=== PATIENT | female | born 1980 | race Caucasian/White ===

== ENCOUNTER 2019-12-17 00:22 | Observation (INO) | payer OTHER, SELFPAY ==
[2019-12-17] VITALS (17 sets, daily range): BP systolic 120–157; BP diastolic 54–106; PULSE 85–127; RESP 13–26; TEMP 36.6–37.5; O2SAT 97–100; BMI 27.9
--- NOTE | ~2019-12-17 | CT_ITS ---
EXAMINATION: CT brain wo con EXAM DATE: 12/17/2019 02:30 INDICATION: Seizure, head trauma, laceration. Fell from bed. TECHNIQUE: Spiral CT of the head was performed without contrast. Axial, coronal and sagittal images were reviewed. The dose-length product (DLP) for this examination was 605.33 mGy-cm. The exposure w as tailored according to patient size, and iterative reconstruction (ASIR) was used as additional dos e reduction technique. There is no prior study for comparison. FINDINGS: There is no acute intraparenchymal hemorrhage. No evidence of intraparenchymal brain mass lesion. No evidence of acute infarction. There is no mass effect or midline shift. The ventricles are normal in size. There are no extra-axial collections. There are no acute calvarial fractures. T he orbits are unremarkable. Small frontal scalp contusion and laceration. The visualized sinuses and mastoid air cells are well aerated. IMPRESSION: 1. No acute intracranial findings. 2. Small frontal scalp contusion and laceration. Reviewed, dictated and finalized at location A.
--- NOTE | ~2019-12-17 | CT_ITS ---
EXAMINATION: CT facial & cervical spine wo EXAM DATE: 12/17/2019 02:30 INDICATION: Fall, frontal head injury. TECHNIQUE: Spiral CT of the facial bones was acquired in the axial plane. Coronal reformatted images were also reviewed. Spiral CT of the cervical spine was performed without contrast. Axial images we re reviewed. Coronal and sagittal reformatted images were also reviewed. The dose-length product (DL P) for this examination was 486.62 mGy-cm. The exposure was tailored according to patient size, and iterative reconstruction (ASIR) was used as additional dose reduction technique. There is no prior s tudy for comparison. FINDINGS: FACIAL CT: Acute right frontal bone fracture with minimal buckling. The septum appears intact. The orbits, globes and extraocular muscles are unremarkable. Small amount of blood within the right eth moid sinuses and nasal cavity. Mild maxillary mucoperiosteal thickening. CERVICAL CT: There is no evidence of acute cervical fracture. The odontoid process is intact. Pre-d ens space is normal. Prevertebral soft tissue is normal. There are no soft tissue abnormalities latoya ntified. There is no disc space widening or traumatic vertebral body subluxation suspected. Incompl ete fusion posterior arch of C1, normal congenital variant. Mild cervical arthropathy. Disc heights a re maintained. A detailed level by level evaluation of spondylosis can be added as addendum if reques ashley. IMPRESSION: 1. Acute right nasal bone fracture. Small amount of sinus opacity. 2. Mild cervical arthropathy without fracture. Reviewed, dictated and finalized at location A.
--- NOTE | 2019-12-17 00:37 | ECG_ITS ---
Measurements Intervals [place] Rate: 117 P: 55 [place]: 166 QRS: 46 QRSD: 98 T: 61 QT: 417 QTc: 583 Interpretive Statements SINUS TACHYCARDIA DELAYED PRECORDIAL R/S TRANSITION NONSPECIFIC T-WAVE ABNORMALITY- DIFFUSE LEADS BASELINE ARTIFACT- I, III, AVL, V1 ABNORMAL ECG Electronically Signed On 12-17-2019 12:20:18 CDT by Cortez Frank D.O.
[2019-12-17] MEDS: SODIUM CHLORIDE 0.9% IV 1,000 ML 999 ML IV CONT ×2 (00:46→03:15)
[2019-12-17 00:50] LABS: Basophils Percent Auto 0.6 % (0.2-1.2); Eosinophils Absolute Auto 0.1 K/mm3 (0-0.3); Hematocrit 39.9 % (37.0-47.0); Hemoglobin 13.8 g/dL (12.0-15.0); Immature Granulocyte Absolute 0.03 K/mm3 (0.00-0.031); Immature Granulocyte Percent A 0.4 % (0-0.5); Lymphocytes Absolute Auto 1.42 K/mm3 (0.9-3.2); Lymphocytes Percent Auto 19.6 % (18.3-44.2); Mean Corpuscular HGB Conc 34.6 g/dl (32-36); Mean Corpuscular Hemoglobin 33.9 pg (26-34); Monocytes Absolute Auto 0.7 K/mm3 (0.1-0.6); Monocytes Percent Auto 9.5 % (2.6-8.5); Neutrophils Percent Auto 68.9 % (45.5-73.1); Platelet Count Result 77 k/mm3 (150-375); Red Blood Count 4.07 M/mm3 (4.2-5.4); Red Cell Distribution Width 12.5 % (11.5-14.5); White Blood Count 7.3 K/mm3 (4.5-10.0)
[2019-12-17 00:58] LABS: INR 0.9; Prothrombin Time 11.8 Seconds (11.1-14.7)
[2019-12-17 01:00] LABS: Ethanol 92 mg/dL (<10)
[2019-12-17 01:01] LABS: Alanine Aminotransferase 153 U/L (4-35); Albumin Level 5.2 g/dL (3.5-5.1); Alkaline Phosphatase 74 U/L (38-126); Anion Gap 15 mmol/L (8-16); Aspartate Amino Transferase 113 U/L (14-36); Bilirubin,Total 0.9 mg/dL (0.2-1.3); Blood Urea Nitrogen 10 mg/dL (7-17); Calcium 9.2 mg/dL (8.4-10.2); Carbon Dioxide 21 mmol/L (22-30); Chloride 99 mmol/L (98-107); Estimated Glomerular Filt Rate > 60; Glucose 102 mg/dL (65-105); Sodium 135 mmol/L (137-145)
--- NOTE | 2019-12-17 01:18 | ED.ALCOHOL ---
HPI - Alcohol General Chief Complaint: Alcohol Stated Complaint: quit drinking, chest pain, shaking, vomiting Time Seen by Provider: 12/17/19 00:35 History of Present Illness HPI narrative: Patient is a 39-year-old female who presents the ER with alcohol withdrawal. Patient reports she drinks 1/5 of EJ bogdan a day. Sometimes she will switch it up and drink some Gonzalo Beam. Patient is side today she want to stop drinking. Her last drink was this evening when she had 6 [place] light beers more attempt to curb her withdrawal. Patient reports she just feels terrible and is very shaky. She is reporting some on diffuse abdominal pain related to this. Positive nausea/vomiting. No diarrhea. No urinary frequency/urgency. Related Data Home Medications Medication Instructions Recorded Confirmed escitalopram oxalate [Lexapro] 10 mg PO DAILY 12/17/19 12/17/19 hydroxyzine HCl 50 mg PO HS 12/17/19 12/17/19 prazosin [Minipress] 1 mg PO HS 12/17/19 12/17/19 Allergies Allergy/AdvReac Type Severity Reaction Status Date / Time Penicillins Allergy Unknown RASH Verified 05/18/17 14:11 Sulfa (Sulfonamide Allergy Unknown Verified 05/18/17 14:11 Antibiotics) Review of Systems Review of Systems: All systems reviewed & are unremarkable except as noted in HPI and below Constitutional: Constitutional: Denies chills, Denies fever(s) and Denies weakness ENT: Denies nasal congestion and Denies sore throat Gastrointestinal: Gastrointestinal: Reports abdominal pain, Denies diarrhea, Reports nausea and Reports vomiting Genitourinary: Genitourinary: Denies nocturia and Denies dysuria [facility] Past Medical History Medical History Alcoholism H/O: depression Surgical History Surgical History History of orthopedic surgery LLE Social History Social History Smoking packs per day: 2 Smoking cigarettes per day: 40.0 Smoking status: Current every day smoker Tobacco type: cigarettes Second hand tobacco smoke exposure: Yes Alcohol intake: current Drinks per week: 7 Substance use: current Substance use type: marijuana Gender identity (if verbalized by the patient): Female Spiritual care concerns: Yes Exam Narrative: Exam Narrative: GENERAL: Uncomfortable-appearing, well-nourished, and in mild distress. HEAD: Normocephalic, atraumatic. ENT: Mucous membranes moist. CHEST: Clear to auscultation. No respiratory distress. HEART: Tachycardic and regular. Normal peripheral pulses. ABDOMEN: Soft, nontender, nondistended. EXTREMITIES: Normal range of motion. No edema. SKIN: Warm, dry, no rash. NEURO: Tremulous. Alert and oriented x3. Course Reevaluation(s) Reevaluation #1: Patiently with initially good response with Valium and then for tachycardia and tremulousness. Patient is ambulated to the bathroom and walked back into her room. She then dropped and had a seizure. She struck her head most likely on the ground and has a new midline laceration. She also has bleeding from her nose and has a small amount of swelling over the bridge of the nose. Patient was rolled on her side when she spit up blood. She then regained consciousness and she was also back in the bed where seizure pads were placed. Patient was then given Ativan [address] imaging of her head face and C-spine. Accu-Chek 109. Date: 12/17/19 Time: 02:04 Reevaluation #2: Accepted to ICU by Dr. Lowe, accepted by hospitalist as well. Date: 12/17/19 Time: 03:21 Vital Signs Vital signs: Vital Signs Temperature 97.9 F 12/17/19 00:23 Pulse Rate 127 H 12/17/19 00:23 Respiratory Rate 20 12/17/19 00:23 Blood Pressure 155/101 H 12/17/19 00:23 Pulse Oximetry 99 12/17/19 00:23 Temperature 97.7 F 12/19/19 14:00 Pulse Rate 85 12/19/19 14:00 Respiratory Rate 14 12/19/19
--- NOTE | 2019-12-17 01:23 | PC.NURSE ---
pt ambulatory to restroom at this time.
--- NOTE | 2019-12-17 01:35 | PC.NURSE ---
pt missed urine cup with urine while in restroom. edp notified.
--- NOTE | 2019-12-17 02:00 | PC.NURSE ---
RN walked into room at this time, pt found on floor having a seizure, leonor marion called to room at this time. 2mg of ativan given at this time.
--- NOTE | 2019-12-17 02:05 | PC.NURSE ---
pt placed back in bed, seizure pads applied to side rails. CT ordered per edp. PT a&ox1, slow to respond, answering to name calling.
[2019-12-17 02:08] LABS: Glucose Point of Care 109 (65-105)
[2019-12-17 03:16] LABS: Add Urine Microscopic? YES; Appearance Urine Cloudy (Clear); Bilirubin Urine Negative (Negative); Blood Urine 3+ (Negative); Color Urine Amber (Yellow); Glucose Urine UA Negative (Negative); Ketones Urine Trace mg/dL (Negative); Leukocyte Esterase Ur 1+ LEU/UL (Negative); Nitrate Urine Positive (Negative); Protein Urine 2+ mg/dL (Negative); RBC Urine 0-2 /hpf (0-2); Specific Grav Ur 1.019 (1.001-1.035); Squamous Epithelial Cell Urine Rare /hpf (Few); Urobilinogen Urine Negative mg/dL (<2.0)
--- NOTE | 2019-12-17 04:29 | PM.IMHP ---
H&P: HPI History of Present Illness Date/Time: 12/17/19 04:29 Chief complaint: alcohol withdrawal seizure Narrative: This is a 39 year old female with known alcoholism who is known to drink 1/5 of hard liquor daily and presented to the hospital today as she desired to stop drinking alcohol. The patient last drank 6 beers around 6 pm yesterday evening to help with her withdrawal symptoms. She initially complained of shakiness, anxiety, sweatiness, nausea and vomiting. She was initially treated with Valium IV in the ER tonight and afterwards she suffered a seizure while ambulating to the bathroom. She suffered head trauma when she struck her forehead on the ground. The patient doesn't remember passing out tonight in the ER. She also reports that she did bite her tongue as well. CT brain was performed in the ER which did not demonstrate any intracranial process. She was given ativan 2 mg. She has no other complaints tonight. She denies any fevers, cough, chest pain, shortness of breath, chills, abdominal pain, dysuria, hematuria, diarrhea, rectal bleeding, or focal neurological symptoms. On my encounter with the patient she complains of shakiness and headache. Jockey Valet, Dr. Lowe has been consulted by ER provider. Review of Systems Review of Systems: All systems reviewed & are unremarkable except as noted in HPI and below PMFSH Past Medical History Medical History Alcoholism H/O: depression Surgical History Surgical History History of orthopedic surgery LLE Social History Social History Smoking packs per day: 2 Smoking cigarettes per day: 40.0 Smoking status: Current every day smoker Tobacco type: cigarettes Second hand tobacco smoke exposure: Yes Alcohol intake: current Drinks per week: 7 Substance use: current Substance use type: marijuana Gender identity (if verbalized by the patient): Female Spiritual care concerns: Yes Meds Home Medications and Allergies Home Medications Medication Instructions Recorded Confirmed Type escitalopram oxalate [Lexapro] 10 mg PO DAILY 12/17/19 12/17/19 History hydroxyzine HCl 50 mg PO HS 12/17/19 12/17/19 History prazosin [Minipress] 1 mg PO HS 12/17/19 12/17/19 History Allergies Allergy/AdvReac Type Severity Reaction Status Date / Time Penicillins Allergy Unknown RASH Verified 05/18/17 14:11 Sulfa (Sulfonamide Allergy Unknown Verified 05/18/17 14:11 Antibiotics) Vital Signs Vital Signs - 24 hr 12/17/19 00:23 12/17/19 01:09 12/17/19 02:12 Temperature 36.6 C Pulse Rate 127 H 98 115 H Respiratory Rate 20 19 25 H Blood Pressure 155/101 H 148/99 H 157/97 H Pulse Oximetry 99 97 98 12/17/19 02:47 12/17/19 03:18 12/17/19 03:36 Temperature Pulse Rate 104 H 99 101 H Respiratory Rate 25 H 26 H 13 Blood Pressure 136/94 H 140/93 H 138/91 H Pulse Oximetry 97 98 99 12/17/19 04:04 Temperature 36.8 C Pulse Rate 101 H Respiratory Rate 21 H Blood Pressure 137/85 Pulse Oximetry 97 Exam Const: General: alert, awake and acute distress Nutritional Appearance: well nourished Orientation/consciousness: patient oriented x3 HENMT: Head: laceration (frontal++ ) General nose exam: Other nasal findings present (nosebleed+) Face and sinus: normal facial exam Mouth: Yes tongue abnormal (left sided tongue laceration++ ) Eyes: Pupils: Equal, round and reactive pupils present EOM: EOMs intact bilaterally Neck: Neck: supple and no JVD Thyroid: thyroid normal Lymphatic: lymphadenopathy not noted Resp: Effort & Inspection: normal respiratory effort Auscultation: clear to auscultation bilaterally Cardio: Rate: tachycardic Rhythm: regular rhythm Heart sounds: no murmurs GI: Inspection: normal to inspection Auscultation: normal bowel sounds Skin: General skin
[2019-12-17 05:15] LABS: Basophils Percent Auto 0.5 % (0.2-1.2); Eosinophils Percent Auto 0.2 % (0-4.4); Hematocrit 35.5 % (37.0-47.0); Hemoglobin 12.4 g/dL (12.0-15.0); Immature Granulocyte Absolute 0.03 K/mm3 (0.00-0.031); Immature Granulocyte Percent A 0.5 % (0-0.5); Immature Platelet Fraction Pct 5.7 % (0.9-11.2); Lymphocytes Absolute Auto 0.65 K/mm3 (0.9-3.2); Lymphocytes Percent Auto 11.1 % (18.3-44.2); Mean Corpuscular HGB Conc 34.9 g/dl (32-36); Mean Corpuscular Hemoglobin 34.4 pg (26-34); Mean Corpuscular Volume 98.6 fl (80-100); Mean Platelet Volume 10.4 fl (7.4-10.4); Monocytes Absolute Auto 0.4 K/mm3 (0.1-0.6); Neutrophils Absolute Auto 4.7 K/mm3 (1.3-6.7); Neutrophils Percent Auto 80.7 % (45.5-73.1); Platelet Count Result 78 k/mm3 (150-375); Red Cell Distribution Width 12.5 % (11.5-14.5); White Blood Count 5.9 K/mm3 (4.5-10.0)
[2019-12-17 05:24] LABS: Anion Gap 8 mmol/L (8-16); Blood Urea Nitrogen 8 mg/dL (7-17); Calcium 8.1 mg/dL (8.4-10.2); Carbon Dioxide 24 mmol/L (22-30); Chloride 101 mmol/L (98-107); Estimated CRCL calculation 139 ml/min; Estimated Glomerular Filt Rate > 60; Glucose 114 mg/dL (65-105); Magnesium 1.9 mg/dL (1.6-2.3); Potassium 3.9 mmol/L (3.4-5.0); Sodium 133 mmol/L (137-145)
--- NOTE | 2019-12-17 06:12 | ADMGEN ---
This patient, Corrie Mckeon, was admitted to Intensive Care Unit-12 at 0428. Patient/family oriented to hospital policies and general routines including ID bracelet, bed and alarms, visiting hours, pain management, procedures, bathroom and other care routines, personal items, smoking policy, room service/diet, and visiting hours. Valuables list has been completed. Information on how to activate the Rapid Response Team has been discussed. Patient/Family are encouraged to report perceived risks to care and to ask questions if they do not understand what they are told or what they should do.
[2019-12-17] MEDS: THIAMINE HCL 200 MG/2 ML VIAL 100 MG IV PUSH (08:06)
[2019-12-17] MEDS: chlordiazePOXIDE 25 MG CAPSULE 50 MG PO ×3 (08:06→20:29)
[2019-12-17] MEDS: NICOTINE (*PBKC) 21 MG PATCH 1 PATCH TRANSDERM (08:45)
[2019-12-17] MEDS: FOLIC ACID 1 MG TABLET PO (08:45)
--- NOTE | 2019-12-17 09:43 | WPDCNINT ---
Assessment and Plan Assessment and plan (1) Alcohol withdrawal seizure: Qualifiers: Complication of substance-induced condition: with unspecified complication Qualified Code(s): F10.239 - Alcohol dependence with withdrawal, unspecified; R56.9 - Unspecified convulsions Code(s): F10.239 - Alcohol dependence with withdrawal, unspecified; R56.9 - Unspecified convulsions Status: Acute Assessment and Plan: alcohol withdrawal seizures, - no more seizures since in the ICU - Ativen PRN - start Librium - continue IV fluids - continue CIWA protocol - continue thiamine and folic acid (2) Laceration of head: Qualifiers: Encounter type: initial encounter Location of open wound of head: scalp Foreign body presence: without foreign body Qualified Code(s): S01.01XA - Laceration without foreign body of scalp, initial encounter Code(s): S01.91XA - Laceration without foreign body of unspecified part of head, initial encounter Status: Acute Assessment and Plan: laceration of head after a fall, CT scan of the head, face and cervical spine showed fracture of the nasal bone. - continue pain control (3) Thrombocytopenia: Code(s): D69.6 - Thrombocytopenia, unspecified Status: Chronic Assessment and Plan: chronic thrombocytopenia likely secondary to chronic alcoholism. Continue to monitor (4) Transaminitis: Code(s): R74.0 - Nonspecific elevation of levels of transaminase and lactic acid dehydrogenase [LDH] Status: Acute Assessment and Plan: elevated LFTs likely related likely to alcoholic liver disease - will continue to monitor (5) Tobacco dependence: Code(s): F17.200 - Nicotine dependence, unspecified, uncomplicated Status: Acute Assessment and Plan: counseled patient on tobacco cessation, she stated she is going to quit drinking 1st and then will be working on her cigarettes - nicotine patch in place Additional Plan discussed with patient updated with her condition and plan of care, answered all questions. Code status: Full code critical care time spent: 42 minutes Due to a high probability of clinically significant, life threatening deterioration, the patient required my highest level of preparedness to intervene emergently and I personally spent this critical care time directly and personally managing the patient. This critical care time included obtaining a history; examining the patient; pulse oximetry; ordering and review of studies; arranging urgent treatment with development of a management plan; evaluation of patient's response to treatment; frequent reassessment; and discussions with other providers. It was exclusive of separately billable procedures and treating other patients and teaching time. Please see Assessment and Plan section and the rest of the note for further information on patient assessment and treatment Decorating Instructor Consult Note Consult date: 12/17/19 Time Seen: 07:08 Reason for consult: alcohol intoxication, alcohol withdrawal seizure HPI: Corrie Mckeon is a 39 year old female with significant past medical history of alcoholism, no to drink 1/5 of hard liquor daily presented to the hospital early this morning after she has quit drinking. She had last drink on 12/15 in the evening to help her with her withdrawal symptoms feel she complained of shakiness, anxiety, diaphoresis, nausea vomiting. In the ED she was given Valium IV after which she suffered a seizure while ambulating to the bathroom. She did have a fall with trauma to the head. CT scan of the head was negative for acute intracranial abnormalities. CT scan of facial bones and cervical spine showed acute right nasal bone fracture, small amount of sinus opacity, mild cervical arthropathy without fracture. Pt was transferred to the ICU to watch for withdrawal. Pt seen and examined, is awake, alert, oriented x3. non focal. Pt states she
--- NOTE | 2019-12-17 14:58 | PM.IMPN ---
Progress Note: A&P Assessment and Plan (1) Alcohol withdrawal seizure: Qualifiers: Complication of substance-induced condition: with unspecified complication Qualified Code(s): F10.239 - Alcohol dependence with withdrawal, unspecified; R56.9 - Unspecified convulsions Code(s): F10.239 - Alcohol dependence with withdrawal, unspecified; R56.9 - Unspecified convulsions Status: Acute Assessment and Plan: Seizure precautions. Ativan IV for any acute seizures. transfer to the floor. (2) Alcohol withdrawal: Qualifiers: Complication of substance-induced condition: with unspecified complication Qualified Code(s): F10.239 - Alcohol dependence with withdrawal, unspecified Code(s): F10.239 - Alcohol dependence with withdrawal, unspecified Status: Acute Assessment and Plan: CIWA-AR protocol. Ativan withdrawal prophylaxis. Librium PO when possible. Thiamine IV daily. Pt drinks whisky (3) Laceration of head: Qualifiers: Encounter type: initial encounter Location of open wound of head: scalp Foreign body presence: without foreign body Qualified Code(s): S01.01XA - Laceration without foreign body of scalp, initial encounter Code(s): S01.91XA - Laceration without foreign body of unspecified part of head, initial encounter Status: Acute Assessment and Plan: Acute head trauma w/ laceration. Pt has sutures in situ. CT brain was unremarkable for intracranial pathology. (4) Thrombocytopenia: Code(s): D69.6 - Thrombocytopenia, unspecified Status: Chronic Assessment and Plan: Chronic thrombocytopenia likely secondary to chronic alcoholism. . (5) Transaminitis: Code(s): R74.0 - Nonspecific elevation of levels of transaminase and lactic acid dehydrogenase [LDH] Status: Acute Assessment and Plan: Likely secondary to chronic alcoholism. . (6) Tobacco dependence: Code(s): F17.200 - Nicotine dependence, unspecified, uncomplicated Status: Acute Assessment and Plan: adviced to quit drinking alcholol Subjective Date/time seen: 12/17/19 14:58 Interval history: 39 year old female with known alcoholism who is known to drink 1/5 of hard liquor daily and presented to the hospital today as she desired to stop drinking alcohol. Pt had a large seizure were she hit her head and bit her tongue. Pt is stable for transfer to the medical floor. Review of Systems Review of Systems: Narrative: Seizure, head injury, bruises all over faceand legs Exam Const: General: alert, awake and acute distress Nutritional Appearance: well nourished Orientation/consciousness: patient oriented x3 HENMT: Head: laceration (frontal++ ) General nose exam: Other nasal findings present (nosebleed+) Face and sinus: normal facial exam Mouth: Yes tongue abnormal (left sided tongue laceration++ ) Resp: Effort & Inspection: normal respiratory effort Auscultation: clear to auscultation bilaterally Cardio: Rate: tachycardic Rhythm: regular rhythm Heart sounds: no murmurs GI: Inspection: normal to inspection Auscultation: normal bowel sounds Skin: General skin exam: normal color and no rashes or lesions noted Neuro: General: patient oriented x3 and other (Tremors++ ) Cranial nerves: Yes CN's II-XII intact bilaterally and Yes Equal, round and reactive pupils present Speech: normal speech Motor exam (neuro): 5/5 motor strength present throughout Sensory Exam: normal sensation Extrem: General: normal to inspection and no edema Psych: Mental Status: mental status grossly normal Affect: normal affect Objective Data Vital Signs Vital Signs: Vital Signs - 24 hr 12/17/19 00:23 12/17/19 01:09 12/17/19 02:12 Temperature 36.6 C Pulse Rate 127 H 98 115 H Pulse Rate [Monitor] Respiratory Rate 20 19 25 H Blood Pressure 155/101 H 148/99 H 157/97 H Pulse Oximetry 99 97 98 12/17/19 02:47 12/17/19 03:18 0
--- NOTE | 2019-12-17 18:48 | PC.NURSE ---
This patient, Corrie Mckeon, was transferred to [facility] via wheelchair on 12/17/19 at 1840. Personal belongings sent with patient. Belongings list checked and signed with receiving . Report given to DOV Rodriguez. Appropriate documentation sent with patient.
--- NOTE | 2019-12-17 18:51 | PC.NURSE ---
Received patient from ICU via wheelchair with ICU staff. Patient settled into room. Awake and alert. No distress noted. Seizure pads on bedrails. Patient states she is having mouth pain since eating. Requesting pain med.
[2019-12-17] MEDS: hydrOXYzine HCL 25 MG TABLET 50 MG PO (20:29)
[2019-12-17] MEDS: PRAZOSIN HCL 1 MG CAPSULE PO (20:29)
[2019-12-18] VITALS: BP 112/71; PULSE 84; RESP 18; TEMP 36.6; O2SAT 98
[2019-12-18] MEDS: chlordiazePOXIDE 25 MG CAPSULE 50 MG PO ×4 (05:00→20:27)
[2019-12-18 06:01] LABS: Hemoglobin 12.9 g/dL (12.0-15.0); Immature Platelet Fraction Pct 9.3 % (0.9-11.2); Mean Corpuscular HGB Conc 33.9 g/dl (32-36); Mean Corpuscular Hemoglobin 33.9 pg (26-34); Mean Platelet Volume 11.2 fl (7.4-10.4); Platelet Count Result 77 k/mm3 (150-375); Red Cell Distribution Width 12.4 % (11.5-14.5); White Blood Count 6.8 K/mm3 (4.5-10.0)
[2019-12-18 06:06] LABS: Anion Gap 5 mmol/L (8-16); Blood Urea Nitrogen 9 mg/dL (7-17); Calcium 9.1 mg/dL (8.4-10.2); Carbon Dioxide 25 mmol/L (22-30); Chloride 103 mmol/L (98-107); Estimated CRCL calculation 141 ml/min; Estimated Glomerular Filt Rate > 60; Glucose 97 mg/dL (65-105); Potassium 3.9 mmol/L (3.4-5.0); Sodium 133 mmol/L (137-145)
[2019-12-18] MEDS: NICOTINE (*PBKC) 21 MG PATCH 1 PATCH TRANSDERM (08:54)
[2019-12-18] MEDS: THIAMINE HCL 200 MG/2 ML VIAL 100 MG IV PUSH (08:55)
[2019-12-18] MEDS: FOLIC ACID 1 MG TABLET PO (08:55)
[2019-12-18 14:00] VITALS: BP 115/80; PULSE 91; RESP 16; TEMP 37.2; O2SAT 100
[2019-12-18] MEDS: LORazepam 1 MG TABLET PO (14:15)
--- NOTE | 2019-12-18 15:55 | PM.IMPN ---
Progress Note: A&P Assessment and Plan (1) Alcohol withdrawal seizure: Qualifiers: Complication of substance-induced condition: with unspecified complication Qualified Code(s): F10.239 - Alcohol dependence with withdrawal, unspecified; R56.9 - Unspecified convulsions Code(s): F10.239 - Alcohol dependence with withdrawal, unspecified; R56.9 - Unspecified convulsions Status: Acute Assessment and Plan: Seizure precautions. Ativan IV for any acute seizures. transfer to the floor. 12/18/19 15:55 patient is a 39-year-old female with history of alcohol abuse patient drinks 1/5 of hard liquor every day and had been trying to stop drinking and developed shakes, to stop her shakes she had 6 beers however she continued to going in to withdrawal and presented emergency department for further evaluation, while in the emergency depart patient had an episode of seizure while ambulating, patient fell and struck head, CT scan of the head did not show any intracranial injury, patient does have laceration, patient is started on CIWA protocol with Librium and Ativan as needed, patient still complains of being anxious however her CIWA protocol score is low, is clinically stable, will continue present management and monitor with CIWA scale, patient will benefit going into alcohol treatment facility, will have a PT OT evaluate the patient, since patient had alcohol withdrawal seizure patient was not placed on any anti seizure medication. (2) Alcohol withdrawal: Qualifiers: Complication of substance-induced condition: with unspecified complication Qualified Code(s): F10.239 - Alcohol dependence with withdrawal, unspecified Code(s): F10.239 - Alcohol dependence with withdrawal, unspecified Status: Acute Assessment and Plan: CIWA-AR protocol. Ativan withdrawal prophylaxis. Librium PO when possible. Thiamine IV daily. Pt drinks whisky (3) Laceration of head: Qualifiers: Encounter type: initial encounter Location of open wound of head: scalp Foreign body presence: without foreign body Qualified Code(s): S01.01XA - Laceration without foreign body of scalp, initial encounter Code(s): S01.91XA - Laceration without foreign body of unspecified part of head, initial encounter Status: Acute Assessment and Plan: Acute head trauma w/ laceration. Pt has sutures in situ. CT brain was unremarkable for intracranial pathology. (4) Thrombocytopenia: Code(s): D69.6 - Thrombocytopenia, unspecified Status: Chronic Assessment and Plan: Chronic thrombocytopenia likely secondary to chronic alcoholism. . (5) Transaminitis: Code(s): R74.0 - Nonspecific elevation of levels of transaminase and lactic acid dehydrogenase [LDH] Status: Acute Assessment and Plan: Likely secondary to chronic alcoholism. . (6) Tobacco dependence: Code(s): F17.200 - Nicotine dependence, unspecified, uncomplicated Status: Acute Assessment and Plan: adviced to quit drinking alcholol Additional Plan I suspect the patient will likely need at least 2 nights of inpatient medical therapy for her alcohol withdrawal and withdrawal seizure. Date of service was 12/17/2019 at 5:00 hrs. Subjective Date/time seen: Seizure precautions. Ativan IV for any acute seizures. transfer to the floor. 12/18/19 15:55 patient is a 39-year-old female with history of alcohol abuse patient drinks 1/5 of hard liquor every day and had been trying to stop drinking and developed shakes, to stop her shakes she had 6 beers however she continued to going in to withdrawal and presented emergency department for further evaluation, while in the emergency depart patient had an episode of seizure while ambulating, patient fell and struck head, CT scan of the head did not show any intracranial injury, patient does have laceration, patient is started on CIWA protocol with Librium and Ativan as
[2019-12-18] MEDS: hydrOXYzine HCL 25 MG TABLET 50 MG PO (20:27)
[2019-12-18] MEDS: PRAZOSIN HCL 1 MG CAPSULE PO (20:27)
[2019-12-18] MEDS: ACETAMINOPHEN 325 MG TABLET 650 MG PO (20:31)
[2019-12-19] VITALS: BP 113/74; PULSE 79; RESP 18; TEMP 36.1; O2SAT 100
[2019-12-19] MEDS: chlordiazePOXIDE 25 MG CAPSULE 50 MG PO ×2 (03:11→07:43)
[2019-12-19 06:00] VITALS: BP 111/76; PULSE 81; RESP 18; TEMP 36.2; O2SAT 99
[2019-12-19 06:05] LABS: Hematocrit 36.8 % (37.0-47.0); Hemoglobin 12.5 g/dL (12.0-15.0); Immature Platelet Fraction Pct 9.9 % (0.9-11.2); Mean Corpuscular Hemoglobin 34.4 pg (26-34); Mean Corpuscular Volume 101.4 fl (80-100); Mean Platelet Volume 11.5 fl (7.4-10.4); Platelet Count Result 84 k/mm3 (150-375); Red Blood Count 3.63 M/mm3 (4.2-5.4); White Blood Count 5.9 K/mm3 (4.5-10.0)
[2019-12-19 06:46] LABS: Alanine Aminotransferase 186 U/L (4-35); Albumin Level 4.2 g/dL (3.5-5.1); Alkaline Phosphatase 57 U/L (38-126); Anion Gap 7 mmol/L (8-16); Aspartate Amino Transferase 152 U/L (14-36); Bilirubin,Total 0.8 mg/dL (0.2-1.3); Blood Urea Nitrogen 12 mg/dL (7-17); Calcium 9.1 mg/dL (8.4-10.2); Carbon Dioxide 25 mmol/L (22-30); Chloride 103 mmol/L (98-107); Estimated CRCL calculation 105 ml/min; Estimated Glomerular Filt Rate > 60; Glucose 95 mg/dL (65-105); Magnesium 1.9 mg/dL (1.6-2.3); Potassium 3.7 mmol/L (3.4-5.0); Sodium 135 mmol/L (137-145)
[2019-12-19] MEDS: THIAMINE HCL 200 MG/2 ML VIAL 100 MG IV PUSH (07:44)
[2019-12-19] MEDS: FOLIC ACID 1 MG TABLET PO (07:44)
[2019-12-19] MEDS: NICOTINE (*PBKC) 21 MG PATCH 1 PATCH TRANSDERM (07:44)
[2019-12-19] MEDS: POTASSIUM CHLORIDE 20 MEQ TABLET 40 MEQ PO (08:52)
[2019-12-19] MEDS: ACETAMINOPHEN 325 MG TABLET 650 MG PO (08:52)
[2019-12-19] MEDS: LORazepam 1 MG TABLET PO (08:53)
--- NOTE | 2019-12-19 13:40 | PM.DS ---
DS: Admitting Diagnosis Admitting Diagnosis Admitting Diagnosis: alcohol withdrawal seizure DS: Discharge Diagnosis Discharge Diagnosis (1) Alcohol withdrawal seizure: Qualifiers: Complication of substance-induced condition: with unspecified complication Qualified Code(s): F10.239 - Alcohol dependence with withdrawal, unspecified; R56.9 - Unspecified convulsions Code(s): F10.239 - Alcohol dependence with withdrawal, unspecified; R56.9 - Unspecified convulsions Status: Acute Assessment and Plan: Seizure precautions. Ativan IV for any acute seizures. transfer to the floor. 12/18/19 15:55 patient is a 39-year-old female with history of alcohol abuse patient drinks 1/5 of hard liquor every day and had been trying to stop drinking and developed shakes, to stop her shakes she had 6 beers however she continued to going in to withdrawal and presented emergency department for further evaluation, while in the emergency depart patient had an episode of seizure while ambulating, patient fell and struck head, CT scan of the head did not show any intracranial injury, patient does have laceration, patient is started on CIWA protocol with Librium and Ativan as needed, patient still complains of being anxious however her CIWA protocol score is low, is clinically stable, will continue present management and monitor with CIWA scale, patient will benefit going into alcohol treatment facility, will have a PT OT evaluate the patient, since patient had alcohol withdrawal seizure patient was not placed on any anti seizure medication. (2) Alcohol withdrawal: Qualifiers: Complication of substance-induced condition: with unspecified complication Qualified Code(s): F10.239 - Alcohol dependence with withdrawal, unspecified Code(s): F10.239 - Alcohol dependence with withdrawal, unspecified Status: Acute Assessment and Plan: CIWA-AR protocol. Ativan withdrawal prophylaxis. Librium PO when possible. Thiamine IV daily. Pt drinks whisky (3) Laceration of head: Qualifiers: Encounter type: initial encounter Location of open wound of head: scalp Foreign body presence: without foreign body Qualified Code(s): S01.01XA - Laceration without foreign body of scalp, initial encounter Code(s): S01.91XA - Laceration without foreign body of unspecified part of head, initial encounter Status: Acute Assessment and Plan: Acute head trauma w/ laceration. Pt has sutures in situ. CT brain was unremarkable for intracranial pathology. (4) Thrombocytopenia: Code(s): D69.6 - Thrombocytopenia, unspecified Status: Chronic Assessment and Plan: Chronic thrombocytopenia likely secondary to chronic alcoholism. . (5) Transaminitis: Code(s): R74.0 - Nonspecific elevation of levels of transaminase and lactic acid dehydrogenase [LDH] Status: Acute Assessment and Plan: Likely secondary to chronic alcoholism. . (6) Tobacco dependence: Code(s): F17.200 - Nicotine dependence, unspecified, uncomplicated Status: Acute Assessment and Plan: adviced to quit drinking alcholol DS: Summary Hospital Course Reason for hospitalization: Chief complaint: alcohol withdrawal seizure Narrative: This is a 39 year old female with known alcoholism who is known to drink 1/5 of hard liquor daily and presented to the hospital today as she desired to stop drinking alcohol. The patient last drank 6 beers around 6 pm yesterday evening to help with her withdrawal symptoms. She initially complained of shakiness, anxiety, sweatiness, nausea and vomiting. She was initially treated with Valium IV in the ER tonight and afterwards she suffered a seizure while ambulating to the bathroom. She suffered head trauma when she struck her forehead on the ground. The patient doesn't remember passing out tonight in the ER. She also reports that she did bite her tongue as well.
[2019-12-19 14:00] VITALS: BP 120/86; PULSE 85; RESP 14; TEMP 36.5; O2SAT 100
== END 2019-12-19 15:15 | disposition home or self-care (01) ==
LOC: ANHED 03:23 → ANHICU 08:48 → ANH2MED 12-19 13:40 → ANHICU 12-21 17:20
PROVIDERS: Family Medicine; Admitting Provider Family Medicine; Emergency Provider Emergency Medicine; Visit Provider Family Medicine
DX: F10.239 Alcohol dependence with withdrawal, unspecified (principal); R56.9 Unspecified convulsions; S01.01XA Laceration without foreign body of scalp, initial encounter; D69.6 Thrombocytopenia, unspecified; F17.210 Nicotine dependence, cigarettes, uncomplicated; R74.0 Nonspecific elevation of levels of transaminase and lactic acid dehydrogenase [LDH]; W19.XXXA Unspecified fall, initial encounter
CPT/HCPCS: 36415; 70450; 70486; 72125; 80048; 80053; 80307; 81001; 83735; 85025; 85027; 85055; 85610; 87077; 87086; 87088; 87186; 93005; 96361; 96365; 96374; 96375; 96376; 99285; A9270; G0378; G0379; J0696; J2060; J3360; J3411; J7030

== ENCOUNTER 2020-01-22 17:46 | Emergency (ER) | payer OTHER, SELFPAY ==
--- NOTE | ~2020-01-22 | XR_ITS ---
EXAMINATION: XR chest 2V DATE: 01/22/2020 18:18 INDICATION: Chest pain and dizziness TECHNIQUE: frontal and lateral views of the chest were obtained. COMPARISON: None FINDINGS: The lungs are clear with no focal airspace opacities, pulmonary edema, pleural effusion or pneumothor ax. The cardiomediastinal silhouette is normal. Small median sternotomy wires suggesting childhood lim rgery which is often times for congenital heart disease but would correlate with clinical history. Ch olecystectomy clips in right upper quadrant. Old healed left clavicle fracture deformity. IMPRESSION: 1. No acute cardiopulmonary disease. Reviewed, dictated and finalized at location A.
--- NOTE | ~2020-01-22 | CT_ITS ---
EXAMINATION: CT abdomen pelvis w con DATE: 01/22/2020 19:17 INDICATION: Epigastric pain TECHNIQUE: Computed tomography (CT) of the abdomen and pelvis was performed with 100 mL Omnipaque-350 intravenous contrast. Automated exposure control and iterative reconstruction technique were employe d. The dose-length product was 787.96 mGy-cm. COMPARISON: None FINDINGS: Lung bases are clear. Heart size is normal. No pericardial or pleural effusion. Hepatomegaly with dif fuse hepatic steatosis. Cholecystectomy clips at the gallbladder fossa. Spleen, pancreas, bilateral a drenal glands and kidneys are normal. Small bowel and appendix are normal. There is diffuse mild wall thickening of the mid to distal colon suspicious for mild colitis. There is also diffuse wall thicke verena of the bladder with haziness to the surrounding fat suspicious for cystitis. Uterus and bilatera l adnexa are unremarkable. Trace amount of likely physiologic free fluid in the cul-de-sac. No absces s or free intraperitoneal gas. No pathologically enlarged abdominal or pelvic lymphadenopathy. L5 spo ndylolysis with bilateral pars interarticularis defects and 1.5 cm anterolisthesis with respect to S1 . There is severe associated degenerative disc disease with Modic type III sclerotic endplate changes at L5-S1. IMPRESSION: 1. Bladder wall thickening and surrounding inflammatory stranding consistent with cystitis. Correlate with urinalysis. 2. Mild wall thickening in the mid to distal colon which could be artifactual due to incomplete diste ntion but also raises concern for colitis which could be infectious, inflammatory or less likely isch emic in etiology. 3. Hepatomegaly with prominent diffuse hepatic steatosis. 4. L5 spondylolysis with 1.5 cm anterolisthesis on S1 and severe associated degenerative disc disease . Reviewed, dictated and finalized at location A. IMPRESSION: 1. Bladder wall thickening and surrounding inflammatory stranding consistent wi th cystitis. Correlate with urinalysis. 2. Mild wall thickening in the mid to distal colon which could be artifactual d ue to incomplete distention but also raises concern for colitis which could be infectious, inflammatory or less likely ischemic in etiology. 3. Hepatomegaly with prominent diffuse hepatic steatosis. 4. L5 spondylolysis with 1.5 cm anterolisthesis on S1 and severe associated deg enerative disc disease.
--- NOTE | 2020-01-22 17:48 | ECG_ITS ---
Measurements Intervals [place] Rate: 114 P: 63 NM: 179 QRS: 60 QRSD: 99 T: 70 QT: 340 QTc: 469 Interpretive Statements SINUS TACHYCARDIA NONSPECIFIC ST & T-WAVE ABNORMALITY- DIFFUSE LEADS BASELINE ARTIFACT- II, III, AVF, V5-V6 ABNORMAL ECG Electronically Signed On 01-23-2020 8:22:15 CDT by Cortez Frank D.O.
[2020-01-22 17:50] VITALS: BP 153/97; PULSE 116; RESP 21; TEMP 36.6; O2SAT 95
[2020-01-22 17:54] VITALS: PULSE 115
--- NOTE | 2020-01-22 18:04 | ED.GENADULT ---
HPI - General Adult General Chief complaint: Chest Pain Stated complaint: alcohol withdrawal problems/chest pain Time Seen by Provider: 01/22/20 17:48 Source: patient and old records reviewed Mode of arrival: ambulatory Limitations: no limitations History of Present Illness HPI narrative: Patient is a 39-year-old female who presents with aching pain of the chest with cough and concerns for continued alcohol abuse has been seen in the emergency department for this a week ago patient never followed up or seek help patient has continued to consume alcohol the last drink which was right prior to arrival patient on arrival notes mild aching pain to the chest worse with coughing patient on arrival to emergency department in the room in no distress does not appear uncomfortable has not taken anything for her symptoms Related Data Allergies Allergy/AdvReac Type Severity Reaction Status Date / Time Penicillins Allergy Unknown RASH Verified 01/22/20 17:56 Sulfa (Sulfonamide Allergy Unknown Unknown Verified 01/22/20 17:56 Antibiotics) Review of Systems Review of Systems: All systems reviewed & are unremarkable except as noted in HPI and below PMFSH Past Medical History Medical History Alcoholism H/O: depression Surgical History Surgical History History of orthopedic surgery LLE Social History Social History Smoking packs per day: 2 Smoking cigarettes per day: 40.0 Smoking status: Current every day smoker Tobacco type: cigarettes Second hand tobacco smoke exposure: Yes Alcohol intake: current Drinks per week: 7 Substance use: current Substance use type: marijuana Gender identity (if verbalized by the patient): Female Spiritual care concerns: Yes Exam Narrative: Exam Narrative: GENERAL: Well-appearing, well-nourished, and in no acute distress. HEAD: Normocephalic, atraumatic. EYES: PERRLA and EOMI. ENT: Nares clear, no rhinorrhea or epistaxis. Mucous membranes moist. CHEST: Clear to auscultation. No respiratory distress. No wheezes rales or rhonchi HEART: Regular rate and rhythm. No murmur heard. Normal peripheral pulses. ABDOMEN: Soft, nontender, nondistended EXTREMITIES: Normal range of motion. No edema. SKIN: Warm, dry, no rash. NEURO: No focal deficits. Alert and oriented x3. Cranial nerves II through XII grossly intact PSYCH: Normal mood and affect. Course Course Emergency Course: Patient in the room at this time aware of case findings treatment plan and diagnosis was hydrated and will be discharged with follow-up with primary care has a family who will help assist getting an AA and will also look into programs for inpatient alcohol abuse patient was given a banana bag resting comfortably in the room in no distress felt appropriate for discharge home will be picked up by family Vital Signs Vital signs: Vital Signs Temperature 97.8 F 01/22/20 17:50 Pulse Rate 116 H 01/22/20 17:50 Respiratory Rate 21 H 01/22/20 17:50 Blood Pressure 153/97 H 01/22/20 17:50 Pulse Oximetry 95 01/22/20 17:50 Temperature 97.8 F 01/22/20 17:50 Pulse Rate 104 H 01/22/20 20:46 Respiratory Rate 17 01/22/20 20:46 Blood Pressure 123/74 01/22/20 20:46 Pulse Oximetry 98 01/22/20 20:46 Medical Decision Making MDM Narrative Medical decision making narrative: Patient was treated in the emergency department given fluids banana bag and IV antibiotic for urinary tract infection resources for rehab programs and a were provided patient will also follow with primary care and has been given reasons to return Vital Signs Vital Signs: Vital Signs Temperature 97.8 F 01/22/20 17:50 Pulse Rate 116 H 01/22/20 17:50 Respiratory Rate 21 H 01/22/20 17:50 Blood Pressure 153/97 H 01/22/20 17:50 Pulse Oximetry 95
[2020-01-22 18:07] LABS: Basophils Absolute Auto 0.1 K/mm3 (0.0-0.1); Basophils Percent Auto 0.9 % (0.2-1.2); Eosinophils Absolute Auto 0.1 K/mm3 (0-0.3); Hematocrit 39.4 % (37.0-47.0); Hemoglobin 13.8 g/dL (12.0-15.0); Immature Granulocyte Absolute 0.02 K/mm3 (0.00-0.031); Immature Granulocyte Percent A 0.3 % (0-0.5); Lymphocytes Absolute Auto 1.18 K/mm3 (0.9-3.2); Lymphocytes Percent Auto 20.6 % (18.3-44.2); Mean Corpuscular Hemoglobin 34.2 pg (26-34); Mean Corpuscular Volume 97.8 fl (80-100); Monocytes Absolute Auto 0.5 K/mm3 (0.1-0.6); Monocytes Percent Auto 9.1 % (2.6-8.5); Neutrophils Absolute Auto 3.9 K/mm3 (1.3-6.7); Neutrophils Percent Auto 68.1 % (45.5-73.1); Platelet Count Result 43 k/mm3 (150-375); Red Blood Count 4.03 M/mm3 (4.2-5.4); Red Cell Distribution Width 12.9 % (11.5-14.5); White Blood Count 5.7 K/mm3 (4.5-10.0)
[2020-01-22 18:13] LABS: Platelet Estimate Decreased (Adequate)
[2020-01-22 18:19] LABS: Alanine Aminotransferase 214 U/L (4-35); Albumin Level 4.8 g/dL (3.5-5.1); Alkaline Phosphatase 73 U/L (38-126); Anion Gap 14 mmol/L (8-16); Aspartate Amino Transferase 236 U/L (14-36); Bilirubin,Total 0.5 mg/dL (0.2-1.3); Blood Urea Nitrogen 12 mg/dL (7-17); Calcium 9.1 mg/dL (8.4-10.2); Carbon Dioxide 27 mmol/L (22-30); Chloride 104 mmol/L (98-107); Estimated CRCL calculation 124 ml/min; Estimated Glomerular Filt Rate > 60; Glucose 117 mg/dL (65-105); Lipase 476 U/L (23-300); Potassium 3.8 mmol/L (3.4-5.0); Prothrombin Time 12.9 Seconds (11.1-14.7); Sodium 145 mmol/L (137-145)
[2020-01-22 18:20] LABS: Partial Thromboplastin Time 28.1 SECONDS (22.3-36.8)
[2020-01-22] MEDS: FAMOTIDINE 20 MG/2 ML VIAL IV PUSH (18:23)
[2020-01-22] MEDS: LORazepam INJ (*CRX) 2 MG/ML VIAL 1 MG IV PUSH (18:23)
[2020-01-22 18:30] LABS: Troponin I < 0.012 ng/mL (0.000-0.034)
[2020-01-22 18:55] VITALS: BP 146/98; PULSE 112; RESP 22; O2SAT 99
[2020-01-22 20:46] VITALS: BP 123/74; PULSE 104; RESP 17; O2SAT 98
[2020-01-22 20:53] LABS: Add Urine Microscopic? YES; Appearance Urine Cloudy (Clear); Bilirubin Urine Negative (Negative); Blood Urine 2+ (Negative); Color Urine Yellow (Yellow); Glucose Urine UA Negative (Negative); Ketones Urine Trace mg/dL (Negative); Leukocyte Esterase Ur 3+ LEU/UL (Negative); Mucus Urine Moderate /lpf; Nitrate Urine Negative (Negative); Protein Urine 2+ mg/dL (Negative); RBC Urine >75 /hpf (0-2); Specific Grav Ur 1.028 (1.001-1.035); Squamous Epithelial Cell Urine Moderate /hpf (Few); WBC Urine >75 /hpf
[2020-01-22 21:08] LABS: Troponin I < 0.012 ng/mL (0.000-0.034)
[2020-01-22 21:22] VITALS: BP 141/95; PULSE 88; RESP 17; O2SAT 98
== END 2020-01-22 21:55 | disposition home or self-care (01) ==
PROVIDERS: Emergency Medicine Emergency Medical Services; Emergency Provider Emergency Medicine
DX: F10.20 Alcohol dependence, uncomplicated (principal); N39.0 Urinary tract infection, site not specified; F17.210 Nicotine dependence, cigarettes, uncomplicated; R00.0 Tachycardia, unspecified; R94.31 Abnormal electrocardiogram [ECG] [EKG]
CPT/HCPCS: 36415; 71046; 74177; 80048; 80076; 81001; 81025; 83690; 84484; 85025; 85055; 85610; 85730; 87086; 87088; 93005; 96374; 96375; 99284; J0696; J2060; J3411; J3475; J7121; Q9967

== ENCOUNTER 2020-04-08 21:16 | Inpatient (IN) | payer OTHER, SELFPAY ==
[2020-04-08] VITALS (19 sets, daily range): BP systolic 121–156; BP diastolic 84–106; PULSE 106–136; RESP 18–24; TEMP 37; O2SAT 92–100
--- NOTE | ~2020-04-08 | CT_ITS ---
EXAMINATION: CT abdomen pelvis w con DATE: 04/08/2020 22:52 INDICATION: Epigastric abdominal pain. TECHNIQUE: Computed tomography (CT) of the abdomen and pelvis was performed with 100 mL Omnipaque 350 intravenous contrast. Automated exposure control and iterative reconstruction technique were employe d. The dose-length product was 830.47 mGy-cm. COMPARISON: CT abdomen and pelvis 01/22/2020 FINDINGS: The visualized portions of the lung bases are clear without pneumonia or pleural effusion. The heart size is normal. No pericardial effusion. There is diffuse hepatic steatosis. There are mortensen ges of cholecystectomy. The spleen, pancreas, adrenal glands, and kidneys are normal. There are no di lated loops of bowel. The appendix is normal. There are no pathologically enlarged lymph nodes. There is no free intraperitoneal fluid. There is diffuse bladder wall thickening, consistent with cystitis . 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 There is 16 mm anterolisthesis of L4 on L5. There is s evere degenerative disc disease at L4-L5. IMPRESSION: 1. Cystitis. 2. Diffuse hepatic steatosis. Reviewed, dictated and finalized at location A. TM[employer] PATTERN[employer]KER
--- NOTE | 2020-04-08 21:28 | PC.NURSE ---
Patient states approx 1 month ago she got bit by a stray raccoon and did not come to get evaluated.
[2020-04-08] MEDS: SODIUM CHLORIDE 0.9% IV 1,000 ML 999 ML IV CONT ×2 (21:46→23:51)
[2020-04-08] MEDS: ONDANSETRON INJ 4 MG/2 ML VIAL IV PUSH (21:46)
[2020-04-08 21:57] LABS: Basophils Absolute Auto 0.1 K/mm3 (0.0-0.1); Basophils Percent Auto 1.6 % (0.2-1.2); Eosinophils Percent Auto 0.2 % (0-4.4); Hemoglobin 13.2 g/dL (12.0-15.0); Immature Granulocyte Absolute 0.04 K/mm3 (0.00-0.031); Immature Granulocyte Percent A 0.9 % (0-0.5); Immature Platelet Fraction Pct 10.6 % (0.9-11.2); Lymphocytes Absolute Auto 0.69 K/mm3 (0.9-3.2); Lymphocytes Percent Auto 15.4 % (18.3-44.2); Mean Corpuscular HGB Conc 35.7 g/dl (32-36); Mean Corpuscular Hemoglobin 35.9 pg (26-34); Mean Corpuscular Volume 100.5 fl (80-100); Mean Platelet Volume 11.5 fl (7.4-10.4); Monocytes Absolute Auto 0.5 K/mm3 (0.1-0.6); Monocytes Percent Auto 10.5 % (2.6-8.5); Neutrophils Absolute Auto 3.2 K/mm3 (1.3-6.7); Neutrophils Percent Auto 71.4 % (45.5-73.1); Platelet Count Result 56 k/mm3 (150-375); Red Blood Count 3.68 M/mm3 (4.2-5.4); Red Cell Distribution Width 12.8 % (11.5-14.5); White Blood Count 4.5 K/mm3 (4.5-10.0)
--- NOTE | 2020-04-08 21:57 | ED.CHESTPAIN ---
HPI - Chest Pain General Chief Complaint: Chest Pain Stated Complaint: chest pain Time Seen by Provider: 04/08/20 21:32 History of Present Illness HPI narrative: Patient is a 39-year-old female who presents ER with abdominal pain as well as nausea and vomiting. She is also reporting some mild central chest pain. Patient reports she has been having nausea and vomiting over the last month that is increasing in frequency. This evening with her vomiting she started having some central chest discomfort without radiation. No history of heart disease. Patient does endorse history of alcoholism. Reports her last drink was early in the morning and was a pint of liquor. Patient is tremulous and anxious upon arrival here. Denies any fevers or chills or sweats. She has been having dysuria for the last week. Reports her urine is not discolored. Related Data Home Medications Medication Instructions Recorded Confirmed omeprazole 20 mg PO BID 04/08/20 Allergies Allergy/AdvReac Type Severity Reaction Status Date / Time Penicillins Allergy Unknown RASH Verified 04/08/20 21:27 Sulfa (Sulfonamide Allergy Unknown Unknown Verified 04/08/20 21:27 Antibiotics) rifampin Allergy Unknown Verified 04/08/20 21:27 Review of Systems Review of Systems: All systems reviewed & are unremarkable except as noted in HPI and below Constitutional: Constitutional: Denies chills, Denies fever(s) and Reports weakness ENT: Denies nasal congestion and Denies sore throat Gastrointestinal: Gastrointestinal: Reports abdominal pain, Denies diarrhea, Reports nausea and Reports vomiting Genitourinary: Genitourinary: Reports hematuria, Reports nocturia and Reports dysuria [facility] Past Medical History Medical History (Updated 04/09/20 @ 00:03 by Nadeem Walden MD) Alcoholism H/O: depression Surgical History Surgical History History of orthopedic surgery LLE Social History Social History Smoking packs per day: 2 Smoking cigarettes per day: 40.0 Smoking status: Current every day smoker Tobacco type: cigarettes Second hand tobacco smoke exposure: Yes Alcohol intake: current Drinks per week: 7 Substance use: current Substance use type: marijuana Gender identity (if verbalized by the patient): Female Spiritual care concerns: Yes Exam Narrative: Exam Narrative: GENERAL: ill-appearing, well-nourished, and in no acute distress. HEAD: Normocephalic, atraumatic. CHEST: Clear to auscultation. No respiratory distress. HEART: Tachycardic and regular. Normal peripheral pulses. ABDOMEN: Soft, epigastric tenderness with guarding, nondistended. EXTREMITIES: Normal range of motion. No edema. SKIN: Warm, dry, no rash. NEURO: Alert and oriented x3. Tremulous. PSYCH: Normal mood and affect. Course Course Emergency Course: Admit to the hospitalist service. Tremors resolved with Valium 10 mg. Pain improved with morphine 4 mg. Vital Signs Vital signs: Vital Signs Temperature 98.6 F 04/08/20 21:18 Pulse Rate 117 H 04/08/20 21:18 Respiratory Rate 20 04/08/20 21:18 Blood Pressure 156/106 H 04/08/20 21:18 Pulse Oximetry 98 04/08/20 21:18 Temperature 98.6 F 04/08/20 21:18 Pulse Rate 118 H 04/08/20 23:15 Respiratory Rate 18 04/08/20 23:15 Blood Pressure 142/95 H 04/08/20 22:55 Pulse Oximetry 97 04/08/20 23:15 MDM - Chest Pain Lab Data Result diagrams: 04/08/20 21:44 04/08/20 21:44 Labs: Lab Results 04/08/20 04/08/20 04/08/20 Range/Units 21:44 21:44 21:44 WBC 4.5 (4.5-10.0) K/mm3 RBC 3.68 L (4.2-5.4) M/mm3 Hgb 13.2 (12.0-15.0) g/dL Hct 37.0 (37.0-47.0) % MCV 100.5 H (80-100) fl MCH 35.9 H (26-34) pg MCHC 35.7 (32-36) g/dl RDW 12.8 (11.5-14.5) % Plt Count 56 L (150-375) k/mm3 MPV 11.5 H (7.4-
--- NOTE | 2020-04-08 22:03 | ECG_ITS ---
Measurements Intervals [place] Rate: 115 P: 31 ND: 164 QRS: 41 QRSD: 101 T: 55 QT: 335 QTc: 464 Interpretive Statements SINUS TACHYCARDIA NONSPECIFIC ST & T-WAVE ABNORMALITY- DIFFUSE LEADS BASELINE ARTIFACT- I, II, III, AVR, AVL, AVF, V1-V2 ABNORMAL ECG Electronically Signed On 04-09-2020 7:44:03 [employer]OL TOWER [employer]IO OPERATOR by Cortez Frank D.O.
[2020-04-08 22:05] LABS: Add Urine Microscopic? YES; Appearance Urine Cloudy (Clear); Bilirubin Urine 1+ (Negative); Blood Urine 2+ (Negative); Color Urine Amber (Yellow); Glucose Urine UA Negative (Negative); Ketones Urine 1+ mg/dL (Negative); Leukocyte Esterase Ur 2+ LEU/UL (Negative); Mucus Urine Heavy /lpf; Nitrate Urine Positive (Negative); Protein Urine 3+ mg/dL (Negative); RBC Urine >75 /hpf (0-2); Specific Grav Ur 1.023 (1.001-1.035); Squamous Epithelial Cell Urine Many /hpf (Few); WBC Urine >75 /hpf
[2020-04-08 22:07] LABS: Ethanol 86 mg/dL (<10)
[2020-04-08 22:10] LABS: Alveolar/Arterial O2 Gradient 24.8 mmHg; Base Excess ABG -0.2 mEq/l (+/-2.0); Carboxyhemoglobin 3.4 % THb (0-2.0); Fractional Inspired Oxygen 21 %; HCO3 ABG 22.1 mEq/l (22.0-26.0); Methemoglobin ABG 0.2 %THb (0-1.5); Oxygen Content ABG 17.5 %vol (16.0-22.0); Oxygen Saturation ABG 97.5 % (95.0-100.0); Oxyhemoglobin 93.1 % THb (90.0-100.0); PCO2 ABG 29.7 mmHg (35.0-45.0); PO2 ABG 89.4 mmHg (80.0-100.0); PO2 FiO2 Ratio Arterial Blood 4.26 %; Reduced Hemoglobin 3.3 %THb (0-5.0); Total Hemoglobin 13.3 g/dL (12.0-18.0)
[2020-04-08 22:11] LABS: Modified Allen's Test Pass; Site Drawn LEFT RADIAL
[2020-04-08 22:12] LABS: Alanine Aminotransferase 472 U/L (4-35); Albumin Level 4.9 g/dL (3.5-5.1); Alkaline Phosphatase 144 U/L (38-126); Anion Gap 16 mmol/L (8-16); Bilirubin,Total 2.3 mg/dL (0.2-1.3); Blood Urea Nitrogen 7 mg/dL (7-17); Calcium 9.5 mg/dL (8.4-10.2); Carbon Dioxide 26 mmol/L (22-30); Chloride 95 mmol/L (98-107); Estimated CRCL calculation 144 ml/min; Estimated Glomerular Filt Rate > 60; Glucose 109 mg/dL (65-105); Potassium 3.6 mmol/L (3.4-5.0); Sodium 137 mmol/L (137-145)
[2020-04-08 22:15] LABS: Beta-Hydroxybutyrate/Acetoacetate 2.09 mmol/L (0.02-0.27)
[2020-04-08 22:23] LABS: Aspartate Amino Transferase 740 U/L (14-36)
[2020-04-08 22:29] LABS: Troponin I 0.013 ng/mL (0.000-0.034)
--- NOTE | 2020-04-08 22:45 | PC.NURSE ---
Patient in CT at this time.
[2020-04-08] MEDS: diazePAM INJ (*CRX) 10 MG/2 ML SYRINGE 5 MG IV PUSH ×2 (22:51→23:11)
[2020-04-09] VITALS (16 sets, daily range): BP systolic 137–155; BP diastolic 89–104; PULSE 91–116; RESP 14–20; TEMP 35.9–36.7; O2SAT 96–99; BMI 28.1; BMI 28.2
[2020-04-09 00:02] LABS: Lipase 488 U/L (23-300)
--- NOTE | 2020-04-09 00:36 | PM.IMHP ---
H&P: HPI History of Present Illness Date/Time: 04/09/20 00:36 Chief Complaint: Nausea and vomiting Narrative: This is a 39 year old female who is well known to our Hospitalist service from a previous admission in November of this year for alcohol abuse and alcohol withdrawal who presented to the hospital [facility] with a complaint of nausea and vomiting since yesterday. She decided yesterday that she was going to stop drinking alcohol as she was tired of having to drink shots of hard liquor daily upon waking up because she cannot function throughout the day without drinking alcohol. She is known to drink 1/5 of hard liquor daily. Today she continued to have nausea and vomiting, epigastric abdominal pain, shakiness, anxiety, diaphoresis, and malaise. She became worried because she also developed midsternal chest pain while vomiting that continued throughout the day. She has noticed that she has been getting bruising on her right leg with minor trauma. Her only other complaint [facility] is burning urination and foul smelling urine. She denies any recent fevers, chills, coughing, diarrhea, rectal bleeding, hematuria, or focal neurological deficits. She verbalizes that she would like to quit drinking alcohol. In the ER [facility] she was administered 10 mg of IV Diazepam for her withdrawal symptoms. Review of Systems Review of Systems: All systems reviewed & are unremarkable except as noted in HPI and below PMFSH Past Medical History Medical History Alcoholism H/O: depression Surgical History Surgical History H/O congenital atrial septal defect (ASD) repair History of cholecystectomy History of orthopedic surgery LLE Family History Family History Father Alcoholism Mother Eosinophilic granuloma of lung Mother Alcoholism Social History Social History Smoking packs per day: 1.5 Smoking cigarettes per day: 30.0 Years smoked: 24 Smoking pack-years: 36.00 Smoking status: Heavy tobacco smoker Tobacco type: cigarettes Second hand tobacco smoke exposure: Yes Alcohol intake: current Drinks per week: 7 Substance use: current Substance use type: marijuana Gender identity (if verbalized by the patient): Female Spiritual care concerns: No Meds Home Medications and Allergies Home Medications Medication Instructions Recorded Confirmed Type omeprazole 20 mg PO BID 04/08/20 04/09/20 History acetaminophen 500 mg PO QID PRN 04/09/20 04/09/20 History ibuprofen 800 mg PO Q6H PRN 04/09/20 04/09/20 History Allergies Allergy/AdvReac Type Severity Reaction Status Date / Time Penicillins Allergy Unknown RASH Verified 04/08/20 21:27 Sulfa (Sulfonamide Allergy Unknown Unknown Verified 04/08/20 21:27 Antibiotics) rifampin Allergy Unknown Verified 04/08/20 21:27 Vital Signs Vital Signs - 24 hr 04/08/20 21:18 04/08/20 21:24 04/08/20 21:25 Temperature 37.0 C Pulse Rate 117 H 114 H 136 H Respiratory Rate 20 21 H 21 H Blood Pressure 156/106 H 156/106 H Pulse Oximetry 98 98 99 04/08/20 21:30 04/08/20 21:31 04/08/20 21:32 Temperature Pulse Rate 114 H 117 H 116 H Respiratory Rate 20 22 H Blood Pressure 121/84 121/84 Pulse Oximetry 97 98 98 04/08/20 21:45 04/08/20 22:00 04/08/20 22:01 Temperature Pulse Rate 113 H 111 H 106 H Respiratory Rate 23 H 19 22 H Blood Pressure 137/99 H Pulse Oximetry 99 97 98 04/08/20 22:15 04/08/20 22:30 04/08/20 22:31 Temperature Pulse Rate 116 H 107 H 116 H Respiratory Rate 19 18 20 Blood Pressure 147/104 H Pulse Oximetry 100 97 99 04/08/20 22:50 04/08/20 22:55 04/08/20 23:04 Temperature Pulse Rate 134 H Respiratory Rate 18 21 H Blood Pressure 142/95 H Pulse Oximetry 92 100 04/08/20 23:15 [place]
--- NOTE | 2020-04-09 01:06 | PC.NURSE ---
This patient, Corrie Mckeon, was admitted to IMU Room 200-01. Patient/family oriented to hospital policies and general routines including ID bracelet, bed and alarms, visiting hours, pain management, procedures, bathroom and other care routines, personal items, smoking policy, room service/diet, and visiting hours. Information on how to activate the Rapid Response Team has been discussed. Patient/Family are encouraged to report perceived risks to care and to ask questions if they do not understand what they are told or what they should do.
[2020-04-09 01:16] LABS: Troponin I 0.018 ng/mL (0.000-0.034)
[2020-04-09] MEDS: LORazepam INJ (*CRX) 2 MG/ML VIAL 1 MG IV PUSH ×4 (01:37→20:03)
[2020-04-09] MEDS: SODIUM CHLORIDE 0.9% IV 1,000 ML 125 ML IV CONT (01:37)
[2020-04-09 02:27] LABS: Hepatitis B Surface Antigen Negative (Negative)
[2020-04-09 02:33] LABS: HAV RESULT Negative (Negative); Hepatitis B Core IgM Result Negative (Negative)
[2020-04-09 02:44] LABS: Hepatitis C Virus Antibody Negative (Negative)
[2020-04-09 06:28] LABS: Glucose Point of Care 86 (65-105)
[2020-04-09 07:51] LABS: Troponin I 0.024 ng/mL (0.000-0.034)
--- NOTE | 2020-04-09 10:16 | WPDGICN ---
Assessment and Plan Assessment and plan (1) Alcoholic hepatitis: Qualifiers: Ascites presence: without ascites Qualified Code(s): K70.10 - Alcoholic hepatitis without ascites Code(s): K70.10 - Alcoholic hepatitis without ascites Status: Acute Assessment and Plan: unfortunately she is still drinking heavily bili 2.3, transaminases 400-700 c/w alcoholic hepatitis (will check inr- last hospitalization was normal) also noted thrombocytopenia that could be from etoh abuse and liver disease (2) Nausea and vomiting: Qualifiers: Vomiting type: unspecified Vomiting Intractability: non-intractable Qualified Code(s): R11.2 - Nausea with vomiting, unspecified Code(s): R11.2 - Nausea with vomiting, unspecified Status: Acute Assessment and Plan: avoid using nsaid's (she is using daily) and of course drinking advance diet as tolerated, start on ppi daily- no signs of gib with normal hb (3) Thrombocytopenia: Code(s): D69.6 - Thrombocytopenia, unspecified Status: Chronic (4) Transaminitis: Code(s): R74.0 - Nonspecific elevation of levels of transaminase and lactic acid dehydrogenase [LDH] Status: Acute Assessment and Plan: from etoh hepatitis panel negative (5) Chest pain: Qualifiers: Chest pain type: unspecified Qualified Code(s): R07.9 - Chest pain, unspecified Code(s): R07.9 - Chest pain, unspecified Status: Acute (6) Alcohol withdrawal: Qualifiers: Complication of substance-induced condition: with unspecified complication Qualified Code(s): F10.239 - Alcohol dependence with withdrawal, unspecified Code(s): F10.239 - Alcohol dependence with withdrawal, unspecified Status: Acute Assessment and Plan: ciwa protocol, ativan prn thiamine, mvi ideally will need detox and AA referral. GI Consult Note Consult date/time: 04/09/20 10:16 Reason for consult: alcoholic hepatitis HPI: Corrie Mckeon is a 39 year old female with history of alcohol abuse for more than 10 years drinking 1/5 hard liquor daily and previous hospitalizations for alcohol withdrawal. She says that last several months if does not take a shot of alcohol in the morning then will get nauseous and starts shaking unable to function but last few days had more nausea and yesterday was vomiting and had epigastric discomfort. She came to ER, labs consistent with alcoholic hepatitis, thrombocytopenia with normal hb, CT scan showed steatosis of liver and admitted. She is on CIWA protocol, she is hungry and feeling better today. Only medicines taking at home tylenol and ibuprofen. Never had scopes. Review of Systems Constitutional: Constitutional: Reports lethargy Eyes: Eyes: Reports no additional eye complaints ENT: Reports Normal hearing present Cardiovascular: Cardiovascular: Reports no additional cardiovascular complaints Respiratory: Respiratory: Denies cough Gastrointestinal: Gastrointestinal: Reports nausea and Reports vomiting Musculoskeletal: Musculoskeletal: Reports arthralgias Integumentary/Breasts: Skin/Breast: Denies dry skin Neurologic: Denies Abnormal speech present Psychiatric: Psychiatric: Reports anxiety Endocrine: Endocrine: Denies excessive sweating PMFSH Past Medical History Medical History (Updated 04/09/20 @ 06:03 by Josue High MD) Alcoholism H/O: depression Surgical History Surgical History (Updated 04/09/20 @ 00:43 by Josue High MD) H/O congenital atrial septal defect (ASD) repair History of cholecystectomy History of orthopedic surgery LLE Family History Family History (Updated 04/09/20 @ 01:21 by Gricel Bruner RN) Father Alcoholism Mother Eosinophilic granuloma of lung Mother Alcoholism Social History Social History Smoking packs per day: 1.5 Smoking cigarettes per day: 30.0 Years smoked: 2
[2020-04-09] MEDS: PANTOPRAZOLE SODIUM IV 40 MG VIAL IV PUSH (10:39)
[2020-04-09] MEDS: THIAMINE HCL 200 MG/2 ML VIAL 100 MG IV PUSH (10:39)
[2020-04-09] MEDS: NICOTINE (*PBKC) 21 MG PATCH 1 PATCH TRANSDERM (11:06)
[2020-04-09 12:48] LABS: Glucose Point of Care 109 (65-105)
--- NOTE | 2020-04-09 15:19 | PM.IMPN ---
Progress Note: A&P Assessment and Plan (1) Nausea and vomiting: Qualifiers: Vomiting type: unspecified Vomiting Intractability: non-intractable Qualified Code(s): R11.2 - Nausea with vomiting, unspecified Code(s): R11.2 - Nausea with vomiting, unspecified Status: Acute Assessment and Plan: Supportive care Advance diet as tolerated. (2) Dehydration: Code(s): E86.0 - Dehydration Status: Acute Assessment and Plan: IV hydration. (3) UTI (urinary tract infection): Qualifiers: Urinary tract infection type: site unspecified Hematuria presence: without hematuria Qualified Code(s): N39.0 - Urinary tract infection, site not specified Code(s): N39.0 - Urinary tract infection, site not specified Status: Acute Assessment and Plan: Continue Rocephin Await ua cx. (4) Alcoholic hepatitis: Qualifiers: Ascites presence: without ascites Qualified Code(s): K70.10 - Alcoholic hepatitis without ascites Code(s): K70.10 - Alcoholic hepatitis without ascites Status: Acute Assessment and Plan: Supportive care GI consult. (5) Tobacco dependence: Code(s): F17.200 - Nicotine dependence, unspecified, uncomplicated Status: Chronic Assessment and Plan: Nicotine patch as needed. Subjective Date/time seen: 04/09/20 15:19 I feel much better I'm very thirsty. Review of Systems Review of Systems: Narrative: I came here because I'm an Alcoholic and I was n/v/abdominal pain. Constitutional: Comments: no fevers, no rigors, no chills. Exam Narrative: Exam Narrative: Lying in bed. Const: General: cooperative, no acute distress and tired appearing Nutritional Appearance: average body habitus Orientation/consciousness: patient oriented x3 Limitations: no limitations HENMT: Head: normal to inspection and normocephalic Ears: hearing grossly normal bilaterally General nose exam: Normal external nose present Face and sinus: normal facial exam Mouth: Yes Normal oral and palatal mucosa present Eyes: General: appearance normal, both eyes and all related structures Pupils: Equal, round and reactive pupils present EOM: EOMs intact bilaterally Neck: Neck: normal visual inspection, no lymphadenopathy, supple and no JVD Resp: Effort & Inspection: normal respiratory effort Auscultation: clear to auscultation bilaterally Cardio: Jugular venous distension: no JVD Rate: regular rate Rhythm: regular rhythm GI: Inspection: normal to inspection GI Palp: Yes Soft to palpation and Yes No hepatosplenomegaly present Skin: General skin exam: normal color Lesions: no lesions Rashes: no rashes Trauma: no lacerations or abrasions Wounds: no wounds Neuro: General: patient oriented x3 and CN's II-XI intact bilaterally Cranial nerves: Yes CN's II-XII intact bilaterally and Yes Equal, round and reactive pupils present Cognition (Neuro): normal cognition Speech: normal speech Gait exam (Neuro): Normal gait present Motor exam (neuro): 5/5 motor strength present throughout Extrem: General: normal to inspection, full ROM and no pedal edema Objective Data Vital Signs Vital Signs: Vital Signs - 24 hr 04/08/20 21:18 04/08/20 21:24 04/08/20 21:25 Temperature 98.6 F Pulse Rate 117 H 114 H 136 H Respiratory Rate 20 21 H 21 H Blood Pressure 156/106 H 156/106 H Pulse Oximetry 98 98 99 04/08/20 21:30 04/08/20 21:31 04/08/20 21:32 Temperature Pulse Rate 114 H 117 H 116 H Respiratory Rate 20 22 H Blood Pressure 121/84 121/84 Pulse Oximetry 97 98 98 04/08/20 21:45 04/08/20 22:00 04/08/20 22:01 Temperature Pulse Rate 113 H 111 H 106 H Respiratory Rate 23 H 19 22 H Blood Pressure 137/99 H Pulse Oximetry 99 97 98 04/08/20 22:15 04/08/20 22:30 04/08/20 22:31 Temperature Pulse Rate 116 H 107 H 116 H Respiratory Rate 19 18 20 Blood Pressure 147/104 H Pulse Oximetry 100 97 99 04/08/20 2
[2020-04-09 18:06] LABS: Glucose Point of Care 110 (65-105)
[2020-04-10] VITALS: BP 150/104; PULSE 72
[2020-04-10] MEDS: LORazepam INJ (*CRX) 2 MG/ML VIAL 1 MG IV PUSH ×4 (00:12→19:51)
[2020-04-10 00:14] LABS: Glucose Point of Care 134 (65-105)
[2020-04-10 04:00] VITALS: PULSE 81
[2020-04-10 05:17] LABS: Glucose Point of Care 126 (65-105)
[2020-04-10 05:29] LABS: INR 0.9; Prothrombin Time 12.9 Seconds (11.1-14.7)
[2020-04-10 08:00] VITALS: BP 151/87; PULSE 96; RESP 18; TEMP 36.2; O2SAT 98
[2020-04-10] MEDS: NICOTINE (*PBKC) 21 MG PATCH 1 PATCH TRANSDERM (08:09)
[2020-04-10] MEDS: THIAMINE HCL 200 MG/2 ML VIAL 100 MG IV PUSH (08:10)
[2020-04-10] MEDS: PANTOPRAZOLE SODIUM IV 40 MG VIAL IV PUSH (08:10)
[2020-04-10 11:50] VITALS: BP 130/73; PULSE 91; RESP 16; TEMP 36.3; O2SAT 98
--- NOTE | 2020-04-10 13:46 | PM.IMPN ---
Progress Note: A&P Assessment and Plan (1) Nausea and vomiting: Qualifiers: Vomiting type: unspecified Vomiting Intractability: non-intractable Qualified Code(s): R11.2 - Nausea with vomiting, unspecified Code(s): R11.2 - Nausea with vomiting, unspecified Status: Acute Assessment and Plan: Improved. Supportive care. (2) Dehydration: Code(s): E86.0 - Dehydration Status: Acute Assessment and Plan: IV fluids Supportive care. (3) UTI (urinary tract infection): Qualifiers: Urinary tract infection type: site unspecified Hematuria presence: without hematuria Qualified Code(s): N39.0 - Urinary tract infection, site not specified Code(s): N39.0 - Urinary tract infection, site not specified Status: Acute Assessment and Plan: Continue Rocephin. (4) Alcoholic hepatitis: Qualifiers: Ascites presence: without ascites Qualified Code(s): K70.10 - Alcoholic hepatitis without ascites Code(s): K70.10 - Alcoholic hepatitis without ascites Status: Acute Assessment and Plan: Referred to twelve step program. (5) Tobacco dependence: Code(s): F17.200 - Nicotine dependence, unspecified, uncomplicated Status: Chronic Assessment and Plan: Nicotine patch as needed. Subjective Date/time seen: 04/10/20 13:46 I feel much better today. Review of Systems Review of Systems: Narrative: pain and burning with urination. Constitutional: Comments: chills. Eyes: Comments: no changes in vision. ENT: Comments: no ear ache, no throat pain, no nasal congestion. Cardiovascular: Comments: no chest pain. Respiratory: Comments: no sob, no cough, no sputum production. Gastrointestinal: Comments: no n/v/abdominal pain or diarrhea. Genitourinary: Genitourinary: Reports dysuria Musculoskeletal: Comments: no muscle aches or pain. Integumentary/Breasts: Comments: no rashes Neurologic: Comments: no sensory motor deficit. Psychiatric: Comments: drinks a pint of Vodka every night. Exam Narrative: Exam Narrative: Chronically ill looking. Const: General: cooperative, no acute distress, alert, awake and Physically active Nutritional Appearance: average body habitus Limitations: no limitations HENMT: Head: normal to inspection and normocephalic Ears: hearing grossly normal bilaterally General nose exam: Normal external nose present Face and sinus: normal facial exam Mouth: Yes Normal oral and palatal mucosa present Eyes: General: appearance normal, both eyes and all related structures Pupils: Equal, round and reactive pupils present EOM: EOMs intact bilaterally Neck: Neck: no lymphadenopathy, supple and no JVD Resp: Effort & Inspection: normal respiratory effort Auscultation: clear to auscultation bilaterally Cardio: Jugular venous distension: no JVD Rate: regular rate Rhythm: regular rhythm GI: Inspection: normal to inspection GI Palp: Yes Soft to palpation and Yes No hepatosplenomegaly present Skin: General skin exam: normal color Lesions: no lesions Rashes: no rashes Neuro: General: patient oriented x3 and CN's II-XI intact bilaterally Cranial nerves: Yes CN's II-XII intact bilaterally and Yes Equal, round and reactive pupils present Cognition (Neuro): normal cognition Speech: normal speech Gait exam (Neuro): Normal gait present Motor exam (neuro): 5/5 motor strength present throughout Extrem: General: full ROM and no pedal edema Objective Data Vital Signs Vital Signs: Vital Signs - 24 hr 04/09/20 16:00 04/09/20 19:45 04/09/20 20:00 Temperature 98 F 97.2 F L Pulse Rate 92 111 H Pulse Rate [Bilateral Pedal (Dorsalis Pedis) Palpation] Pulse Rate [Bilateral Radial Palpation] Respiratory Rate 16 20 18 Blood Pressure 147/95 H 155/94 H Pulse Oximetry 99 99 98 04/09/20 22:52 04/10/20 00:00 04/10/20 04:00 Temperature 96.6 F L Pulse Rate 106 H Pulse Rate [Bilateral P
--- NOTE | 2020-04-10 14:16 | PC.NURSE ---
This patient was transferred to [facility] at 1415. Pt's chart and belongings were sent with her. Report was called to Michael MONAE. Pt was stable upon transfer.
[2020-04-10 14:43] VITALS: PULSE 117
--- NOTE | 2020-04-10 15:15 | PC.NURSE ---
patient arrived to unit. All belongings accompanied patient. call light placed at patients side. vitals obtained.
--- NOTE | 2020-04-10 17:01 | WPDGIPROGNO ---
Progress Note: A&P Assessment and Plan (1) Alcoholic hepatitis: Qualifiers: Ascites presence: without ascites Qualified Code(s): K70.10 - Alcoholic hepatitis without ascites Code(s): K70.10 - Alcoholic hepatitis without ascites Status: Acute Assessment and Plan: supportive care, nutrition support, thiamine, vitamins, etc on etoh withdrawal precautions inr normal, will repeat liver enzymes tomorrow (2) Nausea and vomiting: Qualifiers: Vomiting type: unspecified Vomiting Intractability: non-intractable Qualified Code(s): R11.2 - Nausea with vomiting, unspecified Code(s): R11.2 - Nausea with vomiting, unspecified Status: Acute Assessment and Plan: advance diet as tolerated antiemetics prn (3) UTI (urinary tract infection): Qualifiers: Urinary tract infection type: site unspecified Hematuria presence: without hematuria Qualified Code(s): N39.0 - Urinary tract infection, site not specified Code(s): N39.0 - Urinary tract infection, site not specified Status: Acute Assessment and Plan: on antibiotics, still with dysuria (4) Transaminitis: Code(s): R74.0 - Nonspecific elevation of levels of transaminase and lactic acid dehydrogenase [LDH] Status: Acute (5) Thrombocytopenia: Code(s): D69.6 - Thrombocytopenia, unspecified Status: Chronic Subjective Date/time seen: 04/10/20 17:01 Interval history: less nauseous, still anxious and received earlier ativan. Review of Systems Review of Systems: All systems reviewed & are unremarkable except as noted in HPI and below Exam Const: General: comfortable, no acute distress and ill appearing chronically HENMT: General nose exam: Normal nares present Eyes: General: appearance normal, both eyes and all related structures Neck: Neck: no JVD Resp: Auscultation: clear to auscultation bilaterally Cardio: Rate: regular rate Rhythm: regular rhythm GI: Inspection: non-distended GI Palp: Yes Soft to palpation, No Tenderness to palpation present (GI) and No Guarding due to palpation present (GI) Auscultation: normal bowel sounds Skin: General skin exam: normal color Neuro: Speech: normal speech Motor exam (neuro): Normal motor muscle tone present throughout Extrem: General: normal to inspection Psych: Affect: Anxious affect present Objective Data Vital Signs Vital Signs: Vital Signs - 24 hr 04/09/20 19:45 04/09/20 20:00 04/09/20 22:52 Temperature 97.2 F L 96.6 F L Pulse Rate 111 H 106 H Pulse Rate [Bilateral Pedal (Dorsalis Pedis) Palpation] Pulse Rate [Bilateral Radial Palpation] Respiratory Rate 20 18 20 Blood Pressure 155/94 H 150/104 H Pulse Oximetry 99 98 99 04/10/20 00:00 04/10/20 04:00 04/10/20 08:00 Temperature 97.1 F L Pulse Rate 96 Pulse Rate [Bilateral Pedal (Dorsalis Pedis) Palpation] 81 Pulse Rate [Bilateral Radial Palpation] 72 Respiratory Rate 18 Blood Pressure 150/104 H 151/87 H Pulse Oximetry 98 04/10/20 11:50 04/10/20 14:43 Temperature 97.3 F L Pulse Rate 91 Pulse Rate [Bilateral Pedal (Dorsalis Pedis) Palpation] 117 H Pulse Rate [Bilateral Radial Palpation] 117 H Respiratory Rate 16 Blood Pressure 130/73 Pulse Oximetry 98 Intake/Output Intake/Output: Intake & Output 04/07/20 04/08/20 04/09/20 04/10/20 23:59 23:59 23:59 23:59 Intake Total 1000 1611 670 Output Total 875 700 Balance 1000 736 -30 Meds/Results Medications: Active Medications Generic Name Dose Route Start Last Admin Trade Name Freq PRN Reason Stop Dose Admin Ceftriaxone Sodium/Dextrose 1 gm in 50 mls @ 100 mls/hr 04/10/20 00:00 04/10/20 00:45 Rocephin 1 Gm/D5w 50 Ml IVPB Infused Q24H ALLI Infusion Lorazepam 1 mg 04/09/20 00:32 04/10/20 14:45 Lorazepam Inj (*Crx) 2 Mg/Ml Vial IV PUSH 1 mg Q4H PRN Administration Withdrawal Nicotine 1 patch 04/09/20 10:43 04/10/20 08:
[2020-04-10] MEDS: ONDANSETRON INJ 4 MG/2 ML VIAL IV PUSH (17:29)
[2020-04-10 19:50] VITALS: BP 115/85; PULSE 115; RESP 16; TEMP 36.4; O2SAT 99
[2020-04-11] VITALS: PULSE 100
[2020-04-11] MEDS: LORazepam INJ (*CRX) 2 MG/ML VIAL 1 MG IV PUSH ×5 (00:08→20:09)
[2020-04-11 04:00] VITALS: PULSE 90
[2020-04-11 04:45] VITALS: BP 127/90; PULSE 90; RESP 16; TEMP 36.3; O2SAT 98
[2020-04-11 05:35] LABS: Basophils Absolute Auto 0.1 K/mm3 (0.0-0.1); Basophils Percent Auto 1.2 % (0.2-1.2); Eosinophils Absolute Auto 0.1 K/mm3 (0-0.3); Eosinophils Percent Auto 3.4 % (0-4.4); Hematocrit 34.3 % (37.0-47.0); Hemoglobin 11.7 g/dL (12.0-15.0); Immature Granulocyte Absolute 0.03 K/mm3 (0.00-0.031); Immature Granulocyte Percent A 0.7 % (0-0.5); Immature Platelet Fraction Pct 13.1 % (0.9-11.2); Lymphocytes Absolute Auto 1.35 K/mm3 (0.9-3.2); Lymphocytes Percent Auto 32.8 % (18.3-44.2); Mean Corpuscular HGB Conc 34.1 g/dl (32-36); Mean Corpuscular Hemoglobin 34.8 pg (26-34); Mean Corpuscular Volume 102.1 fl (80-100); Mean Platelet Volume 11.8 fl (7.4-10.4); Monocytes Absolute Auto 0.4 K/mm3 (0.1-0.6); Monocytes Percent Auto 10.5 % (2.6-8.5); Neutrophils Absolute Auto 2.1 K/mm3 (1.3-6.7); Neutrophils Percent Auto 51.4 % (45.5-73.1); Platelet Count Result 66 k/mm3 (150-375); Red Blood Count 3.36 M/mm3 (4.2-5.4); Red Cell Distribution Width 12.4 % (11.5-14.5); White Blood Count 4.1 K/mm3 (4.5-10.0)
[2020-04-11 05:53] LABS: Alanine Aminotransferase 265 U/L (4-35); Albumin Level 3.9 g/dL (3.5-5.1); Alkaline Phosphatase 88 U/L (38-126); Anion Gap 8 mmol/L (8-16); Aspartate Amino Transferase 243 U/L (14-36); Bilirubin,Total 1.4 mg/dL (0.2-1.3); Blood Urea Nitrogen 10 mg/dL (7-17); Calcium 9.4 mg/dL (8.4-10.2); Carbon Dioxide 29 mmol/L (22-30); Chloride 100 mmol/L (98-107); Estimated CRCL calculation 139 ml/min; Estimated Glomerular Filt Rate > 60; Glucose 116 mg/dL (65-105); Potassium 3.4 mmol/L (3.4-5.0); Sodium 137 mmol/L (137-145)
[2020-04-11 08:00] VITALS: BP 122/79; BP 127/90; PULSE 117; PULSE 90; PULSE 91; RESP 16; TEMP 37.1; O2SAT 98; O2SAT 99
[2020-04-11] MEDS: NICOTINE (*PBKC) 21 MG PATCH 1 PATCH TRANSDERM (09:12)
[2020-04-11] MEDS: THIAMINE HCL 200 MG/2 ML VIAL 100 MG IV PUSH (09:12)
[2020-04-11] MEDS: PANTOPRAZOLE SODIUM IV 40 MG VIAL IV PUSH (09:12)
--- NOTE | 2020-04-11 10:57 | PM.IMPN ---
Progress Note: A&P Assessment and Plan (1) Nausea and vomiting: Qualifiers: Vomiting type: unspecified Vomiting Intractability: non-intractable Qualified Code(s): R11.2 - Nausea with vomiting, unspecified Code(s): R11.2 - Nausea with vomiting, unspecified Status: Acute Assessment and Plan: Improved. Supportive care. (2) Dehydration: Code(s): E86.0 - Dehydration Status: Acute Assessment and Plan: IV fluids Supportive care. (3) UTI (urinary tract infection): Qualifiers: Urinary tract infection type: site unspecified Hematuria presence: without hematuria Qualified Code(s): N39.0 - Urinary tract infection, site not specified Code(s): N39.0 - Urinary tract infection, site not specified Status: Acute Assessment and Plan: Continue Rocephin. wait for culture results (4) Alcoholic hepatitis: Qualifiers: Ascites presence: without ascites Qualified Code(s): K70.10 - Alcoholic hepatitis without ascites Code(s): K70.10 - Alcoholic hepatitis without ascites Status: Acute Assessment and Plan: Referred to twelve step program. (5) Tobacco dependence: Code(s): F17.200 - Nicotine dependence, unspecified, uncomplicated Status: Chronic Assessment and Plan: Nicotine patch as needed. Additional Plan I suspect the patient will likely need at least 2 nights of inpatient medical therapy for her acute alcoholic hepatitis and comorbid conditions listed above. Date of service was 04/09/2020 at 00:15 hrs. 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 Const: General: cooperative, no acute distress, alert, awake, Physically active, acute distress moderate, tired appearing and other (Tremulous++ anxious++ ) Nutritional Appearance: average body habitus and overweight Orientation/consciousness: patient oriented x3 Limitations: no limitations HENMT: Head: normal to inspection and normocephalic Ears: hearing grossly normal bilaterally General nose exam: Normal external nose present Face and sinus: normal facial exam Mouth: Yes Normal oral and palatal mucosa present and Yes oropharynx normal Eyes: General: appearance normal, both eyes and all related structures Pupils: Equal, round and reactive pupils present EOM: EOMs intact bilaterally Neck: Neck: normal visual inspection, no lymphadenopathy, supple and no JVD Thyroid: thyroid normal Lymphatic: lymphadenopathy not noted Resp: Effort & Inspection: normal respiratory effort Auscultation: clear to auscultation bilaterally Cardio: Jugular venous distension: no JVD Rate: regular rate and tachycardic Rhythm: regular rhythm Heart sounds: no murmurs GI: Inspection: normal to inspection Auscultation: normal bowel sounds Skin: General skin exam: normal color and no rashes or lesions noted Lesions: no lesions Rashes: no rashes Trauma: no lacerations or abrasions Wounds: no wounds Neuro: General: patient oriented x3 and CN's II-XI intact bilaterally Cranial nerves: Yes CN's II-XII intact bilaterally and Yes Equal, round and reactive pupils present Cognition (Neuro): normal cognition Speech: normal speech Gait exam (Neuro): Normal gait present Motor exam (neuro): 5/5 motor strength present throughout Sensory Exam: normal sensation Extrem: General: normal to inspection, full ROM, no pedal edema and no edema Psych: Mental Status: mental status grossly normal Affect: normal affect Objective Data Vital Signs Vital Signs: Vital Signs -
[2020-04-11 12:00] VITALS: BP 122/99; PULSE 117; PULSE 90
[2020-04-11] MEDS: ONDANSETRON INJ 4 MG/2 ML VIAL IV PUSH (14:49)
[2020-04-11 16:00] VITALS: BP 109/75; PULSE 118; RESP 17; TEMP 37.1; O2SAT 99
--- NOTE | 2020-04-11 17:47 | WPDGIPROGNO ---
Progress Note: A&P Assessment and Plan (1) Alcoholic hepatitis: Qualifiers: Ascites presence: without ascites Qualified Code(s): K70.10 - Alcoholic hepatitis without ascites Code(s): K70.10 - Alcoholic hepatitis without ascites Status: Acute Assessment and Plan: supportive care, nutrition support, thiamine, vitamins, etc on etoh withdrawal precautions inr normal, transaminases trending down 250's and also bili improved 1.4 will need AA referral and quit [place], please call if questions (2) Nausea and vomiting: Qualifiers: Vomiting type: unspecified Vomiting Intractability: non-intractable Qualified Code(s): R11.2 - Nausea with vomiting, unspecified Code(s): R11.2 - Nausea with vomiting, unspecified Status: Acute Assessment and Plan: tolerating diet antiemetics prn (3) UTI (urinary tract infection): Qualifiers: Urinary tract infection type: site unspecified Hematuria presence: without hematuria Qualified Code(s): N39.0 - Urinary tract infection, site not specified Code(s): N39.0 - Urinary tract infection, site not specified Status: Acute Assessment and Plan: e coli +, on antibiotics (4) Transaminitis: Code(s): R74.0 - Nonspecific elevation of levels of transaminase and lactic acid dehydrogenase [LDH] Status: Acute Assessment and Plan: improving (5) Thrombocytopenia: Code(s): D69.6 - Thrombocytopenia, unspecified Status: Chronic Subjective Date/time seen: 04/11/20 17:47 Interval history: feeling better, eating more. Review of Systems Review of Systems: All systems reviewed & are unremarkable except as noted in HPI and below Exam Const: General: comfortable, no acute distress and ill appearing chronically HENMT: General nose exam: Normal nares present Eyes: General: appearance normal, both eyes and all related structures Neck: Neck: no JVD Resp: Auscultation: clear to auscultation bilaterally Cardio: Rate: regular rate Rhythm: regular rhythm GI: Inspection: non-distended GI Palp: Yes Soft to palpation, No Tenderness to palpation present (GI) and No Guarding due to palpation present (GI) Auscultation: normal bowel sounds Skin: General skin exam: normal color Neuro: Speech: normal speech Motor exam (neuro): Normal motor muscle tone present throughout Extrem: General: normal to inspection Psych: Affect: Anxious affect present Objective Data Vital Signs Vital Signs: Vital Signs - 24 hr 04/10/20 19:50 04/11/20 00:00 04/11/20 04:00 Temperature 97.6 F Pulse Rate 115 H Pulse Rate [Bilateral Pedal (Dorsalis Pedis) Palpation] Pulse Rate [Bilateral Radial Palpation] 100 90 Respiratory Rate 16 Blood Pressure 115/85 Pulse Oximetry 99 04/11/20 04:45 04/11/20 08:00 04/11/20 12:00 Temperature 97.3 F L 98.8 F Pulse Rate 90 91 Pulse Rate [Bilateral Pedal (Dorsalis Pedis) Palpation] 117 H 117 H Pulse Rate [Bilateral Radial Palpation] 90 90 Respiratory Rate 16 16 Blood Pressure 127/90 122/79 122/99 H Pulse Oximetry 98 99 04/11/20 16:00 Temperature 98.8 F Pulse Rate 118 H Pulse Rate [Bilateral Pedal (Dorsalis Pedis) Palpation] Pulse Rate [Bilateral Radial Palpation] Respiratory Rate 17 Blood Pressure 109/75 Pulse Oximetry 99 Intake/Output Intake/Output: Intake & Output 04/08/20 04/09/20 04/10/20 04/11/20 23:59 23:59 23:59 23:59 Intake Total 1000 0141 454 4254 Output Total 875 700 Balance 1000 355 122 2441 Meds/Results Medications: Active Medications Generic Name Dose Route Start Last Admin Trade Name Freq PRN Reason Stop Dose Admin Ceftriaxone Sodium/Dextrose 1 gm in 50 mls @ 100 mls/hr 04/10/20 00:00 04/11/20 00:40 Rocephin 1 Gm/D5w 50 Ml IVPB Infused Q24H ALLI Infusion Lorazepam 1 mg 04/09/20 00:32 04/11/20 14:49 Lorazepam Inj (*Crx) 2 Mg/Ml Vial IV PUSH 1 mg Q4H PRN
[2020-04-12] VITALS: BP 125/86; PULSE 102
[2020-04-12 00:13] VITALS: BP 125/86; PULSE 104; RESP 18; TEMP 36.7; O2SAT 100
[2020-04-12] MEDS: LORazepam INJ (*CRX) 2 MG/ML VIAL 1 MG IV PUSH ×2 (00:13→08:33)
[2020-04-12 06:25] LABS: Alanine Aminotransferase 233 U/L (4-35); Alkaline Phosphatase 83 U/L (38-126); Anion Gap 10 mmol/L (8-16); Aspartate Amino Transferase 173 U/L (14-36); Bilirubin,Total 1.2 mg/dL (0.2-1.3); Blood Urea Nitrogen 10 mg/dL (7-17); Calcium 9.6 mg/dL (8.4-10.2); Carbon Dioxide 28 mmol/L (22-30); Chloride 98 mmol/L (98-107); Estimated CRCL calculation 139 ml/min; Estimated Glomerular Filt Rate > 60; Glucose 114 mg/dL (65-105); Potassium 3.4 mmol/L (3.4-5.0); Sodium 136 mmol/L (137-145)
[2020-04-12 08:00] VITALS: BP 111/68; PULSE 110; RESP 16; TEMP 36.7; O2SAT 100
[2020-04-12] MEDS: THIAMINE HCL 200 MG/2 ML VIAL 100 MG IV PUSH (08:22)
[2020-04-12] MEDS: NICOTINE (*PBKC) 21 MG PATCH 1 PATCH TRANSDERM (08:25)
[2020-04-12] MEDS: PANTOPRAZOLE SODIUM IV 40 MG VIAL IV PUSH (08:25)
--- NOTE | 2020-04-12 11:11 | PM.DS ---
DS: Admitting Diagnosis Admitting Diagnosis Admitting Diagnosis: 1. Alcohol withdrawal 2. UTI 2. Dehydration DS: Discharge Diagnosis Discharge Diagnosis (1) Alcoholism: Code(s): F10.20 - Alcohol dependence, uncomplicated Status: Acute (2) Transaminitis: Code(s): R74.0 - Nonspecific elevation of levels of transaminase and lactic acid dehydrogenase [LDH] Status: Acute (3) Nausea and vomiting: Qualifiers: Vomiting Intractability: non-intractable Vomiting type: unspecified Qualified Code(s): R11.2 - Nausea with vomiting, unspecified Code(s): R11.2 - Nausea with vomiting, unspecified Status: Acute Assessment and Plan: Improved. Supportive care. (4) Dehydration: Code(s): E86.0 - Dehydration Status: Acute Assessment and Plan: IV fluids Supportive care. (5) UTI (urinary tract infection): Qualifiers: Hematuria presence: without hematuria Urinary tract infection type: site unspecified Qualified Code(s): N39.0 - Urinary tract infection, site not specified Code(s): N39.0 - Urinary tract infection, site not specified Status: Acute Assessment and Plan: Continue Rocephin. wait for culture results (6) Alcoholic hepatitis: Qualifiers: Ascites presence: without ascites Qualified Code(s): K70.10 - Alcoholic hepatitis without ascites Code(s): K70.10 - Alcoholic hepatitis without ascites Status: Acute Assessment and Plan: Referred to [facility]. (7) Tobacco dependence: Code(s): F17.200 - Nicotine dependence, unspecified, uncomplicated Status: Chronic Assessment and Plan: Nicotine patch as needed. DS: Summary Hospital Course Reason for hospitalization: 1. UTI 2. Alcohol withdrawal 3. Dehydration Hospital Course: Patient is 39-year-old female who was admitted with complaints of having nausea and vomiting. Patient was found to have urinary tract infection. Urine culture shows E coli infection sensitive to Levaquin. Patient transaminitis was evaluated by GI service and advised to continue follow liver function tests as an outpatient. No acute intervention is needed. Today patient is feeling better so patient is discharged home in stable condition. A follow-up scheduling GI clinic and [facility]. Patient is also referred to outpatient alcohol rehab. Time spent discussing smoking cessation with patient: 3 to 10 minutes Status at Discharge Cognitive/behavioral status at discharge: Stable Functional status at discharge: independent ambulation Overall status at discharge: patient is back to baseline Time Spent with Patient Time attestation: Total time spent providing and/or coordinating discharge services: Time spent: Less than 30 minutes Specific discharge activities: Smoking counseling is given to the patient Exam Narrative: Exam Narrative: Chronically ill looking. Const: General: cooperative, no acute distress, alert, awake, Physically active, acute distress moderate, tired appearing and other (Tremulous++ anxious++ ) Nutritional Appearance: average body habitus and overweight Orientation/consciousness: oriented to person, oriented to place, oriented to time and patient oriented x3 Limitations: no limitations HENMT: Head: normal to inspection and normocephalic Ears: hearing grossly normal bilaterally and external ears normal General nose exam: Normal external nose present Face and sinus: normal facial exam Mouth: Yes Normal oral and palatal mucosa present and Yes oropharynx normal Eyes: General: appearance normal, both eyes and all related structures Pupils: Equal, round and reactive pupils present EOM: EOMs intact bilaterally Neck: Neck: normal visual inspection, full ROM, no lymphadenopathy, supple and no JVD Thyroid: thyroid normal Lymphatic: lymphadenopathy not noted Chest: Chest palpation & inspection: normal inspection of the chest and normal
[2020-04-12 12:00] VITALS: PULSE 100
== END 2020-04-12 14:05 | disposition home or self-care (01) | DRG 463 ==
LOC: ANHED 04-09 00:03 → ANHIMU 04-09 00:20 → ANHCPC 04-10 14:31
PROVIDERS: Internal Medicine; Internal Medicine Gastroenterology; Admitting Provider Family Medicine; Emergency Provider Emergency Medicine; Visit Provider Internal Medicine
DX: N39.0 Urinary tract infection, site not specified (principal); B96.20 Unspecified Escherichia coli [E. coli] as the cause of diseases classified elsewhere; F10.239 Alcohol dependence with withdrawal, unspecified; K70.10 Alcoholic hepatitis without ascites; F17.210 Nicotine dependence, cigarettes, uncomplicated; D69.6 Thrombocytopenia, unspecified; E86.0 Dehydration; R74.01 Elevation of levels of liver transaminase levels; Z28.21 Immunization not carried out because of patient refusal; Z79.899 Other long term (current) drug therapy; Z88.0 Allergy status to penicillin; Z88.2 Allergy status to sulfonamides; Z88.8 Allergy status to other drugs, medicaments and biological substances
CPT/HCPCS: 36415; 36600; 74177; 80053; 80074; 80307; 81001; 81025; 82010; 82375; 82805; 83050; 83690; 84484; 85025; 85055; 85610; 87077; 87086; 87088; 87186; 93005; 96361; 96365; 96374; 96375; 96376; 99285; A9270; C9113; G0378; G0379; J0696; J2060; J2405; J3360; J3411; J7030; Q9967

== ENCOUNTER 2020-06-16 01:23 | Emergency (ER) | payer OTHER, SELFPAY ==
--- NOTE | ~2020-06-16 | XR_ITS ---
EXAMINATION: XR chest 2V DATE: 06/16/2020 06:07 INDICATION: Cough TECHNIQUE: frontal and lateral views of the chest were obtained. COMPARISON: Chest radiograph dated 01/22/2020 FINDINGS: New region of consolidation at the posteromedial left lower lobe. No pulmonary edema, pleural effusio n or pneumothorax. The cardiomediastinal silhouette is normal. Cholecystectomy clips in the right upp er quadrant. Old healed left clavicle fracture. IMPRESSION: 1. Left lower lobe consolidation which could represent ammonia and/or aspiration. Reviewed, dictated and finalized at location A. UNTING MANAGER CONTROLLER IMPRESSION: 1. Left lower lobe consolidation which could represent ammonia and/or aspiratio n.
[2020-06-16 01:20] VITALS: BP 136/98; PULSE 108; RESP 22; TEMP 37.1; O2SAT 97
--- NOTE | 2020-06-16 01:26 | ED.ALCOHOL ---
HPI - Alcohol General Chief Complaint: Alcohol Stated Complaint: n/v - daily drinker with cough Time Seen by Provider: 06/16/20 01:24 Source: patient and EMS Mode of arrival: EMS Limitations: no limitations History of Present Illness HPI narrative: A 39-year-old female comes into the emergency department with complaints of alcohol withdrawals. Patient states that she drinks 1/5 to a pint of bogdan every day. She notes that she drinks 1 pint today. She states that her last drink was approximately 6 hours ago. Patient states that she could not drink as much as she normally does due to intense nausea and vomiting. She does note that she is bile in her vomit but denies seeing any blood. Patient states that she comes in also wanting to seek rehab. Related Data Home Medications Medication Instructions Recorded Confirmed acetaminophen 500 mg tablet 500 mg PO Q6H PRN 05/11/20 05/16/20 ibuprofen 800 mg tablet 800 mg PO .prn tablet 05/11/20 05/16/20 magnesium gluconate 27 mg 27 mg PO DAILY tablet 05/11/20 05/16/20 magnesium (500 mg) tablet multivitamin with minerals 1 tablet PO DAILY 05/11/20 05/16/20 omeprazole 20 mg capsule,delayed 20 mg PO .prn cap 05/11/20 05/16/20 release Allergies Allergy/AdvReac Type Severity Reaction Status Date / Time codeine Allergy Mild stomach Verified 06/16/20 02:21 pains Sulfa (Sulfonamide Allergy Unknown Unknown Verified 06/16/20 02:21 Antibiotics) rifampin Allergy Unknown Verified 06/16/20 02:21 Review of Systems Review of Systems: Narrative: CONSTITUTIONAL: Denies fever, chills, or sweats. EYES: Denies visual changes, redness, or discharge. ENT: Denies rhinorrhea, congestion, sore throat, or otalgia. CARDIOVASCULAR: Denies chest pain, palpitations, or edema. RESPIRATORY: Denies cough or dyspnea. GASTROINTESTINAL: Denies abdominal pain or diarrhea. Endorses nausea and vomiting GENITOURINARY: Denies dysuria or hematuria. SKIN: Denies rash or itching. MUSCULOSKELETAL: Denies back pain, joint pain, or myalgia. Endorses tremulousness NEUROLOGIC: Denies headache, numbness, dizziness, or weakness. PSYCHIATRIC: Denies anxiety or depression. PMFSH Past Medical History Medical History Acid reflux Alcoholism Broken tibia H/O: depression Inguinal hernia 2020 Muscle deformity Muscle flap reconstruction Surgical History Surgical History H/O congenital atrial septal defect (ASD) repair History of ankle surgery Bilateral ankles History of cholecystectomy History of hernia surgery History of left knee surgery History of orthopedic surgery LLE 18 surgeries Family History Family History Father Alcoholism CHF (congestive heart failure) Cancer Kidney disease Liver failure Mother Eosinophilic granuloma of lung Alcoholism COPD (chronic obstructive pulmonary disease) Heart disease Grandparent Acute myocardial infarction Social History Social History Smoking packs per day: 1 Smoking cigarettes per day: 20.0 Years smoked: 24 Smoking pack-years: 24.00 Smoking status: Current every day smoker Tobacco type: cigarettes Second hand tobacco smoke exposure: Yes Alcohol intake: former Drinks per week: 7 Substance use: current Substance use type: marijuana Gender identity (if verbalized by the patient): Female Spiritual care concerns: No Exam Narrative: Exam Narrative: GENERAL: Well-appearing, well-nourished, and in no acute distress. HEAD: Normocephalic, atraumatic. EYES: PERRLA and EOMI. ENT: Nares clear, no rhinorrhea or epistaxis. Mucous membranes moist. NECK: Supple. No adenopathy or masses. No carotid bruits or JVD CHEST: Clear to auscultation. No respiratory distress. No wheezes rales or rhonchi HEART: Regular rate
[2020-06-16] MEDS: chlordiazePOXIDE (*CRX) 25 MG CAPSULE 50 MG PO (01:31)
[2020-06-16] MEDS: LORazepam INJ (*CRX) 2 MG/ML VIAL 1 MG IV PUSH (01:32)
[2020-06-16] MEDS: ONDANSETRON INJ 4 MG/2 ML VIAL IV PUSH ×2 (01:33→05:30)
--- NOTE | 2020-06-16 01:39 | PC.NURSE ---
Pt. unable to urinate at this time.
[2020-06-16 01:50] VITALS: O2SAT 90
[2020-06-16 01:52] LABS: Basophils Absolute Auto 0.1 K/mm3 (0.0-0.1); Basophils Percent Auto 0.6 % (0.2-1.2); Eosinophils Percent Auto 0.1 % (0-4.4); Hematocrit 39.7 % (37.0-47.0); Hemoglobin 13.7 g/dL (12.0-15.0); Immature Granulocyte Absolute 0.03 K/mm3 (0.00-0.031); Immature Granulocyte Percent A 0.3 % (0-0.5); Immature Platelet Fraction Pct 7.1 % (0.9-11.2); Lymphocytes Percent Auto 6.7 % (18.3-44.2); Mean Corpuscular HGB Conc 34.5 g/dl (32-36); Mean Corpuscular Hemoglobin 34.1 pg (26-34); Mean Corpuscular Volume 98.8 fl (80-100); Mean Platelet Volume 10.8 fl (7.4-10.4); Monocytes Absolute Auto 0.3 K/mm3 (0.1-0.6); Monocytes Percent Auto 2.9 % (2.6-8.5); Neutrophils Percent Auto 89.4 % (45.5-73.1); Platelet Count Result 43 k/mm3 (150-375); Red Blood Count 4.02 M/mm3 (4.2-5.4); Red Cell Distribution Width 12.8 % (11.5-14.5)
[2020-06-16 02:05] LABS: Potassium 3.9 mmol/L (3.4-5.0)
--- NOTE | 2020-06-16 02:15 | PC.NURSE ---
Pt. removed self from tele leads
[2020-06-16 02:20] VITALS: BP 116/82; PULSE 147; RESP 16; O2SAT 94
[2020-06-16] MEDS: THIAMINE HCL INJ 100 MG, FOLIC ACID INJ 1 MG, MULTIVITAMINS-12 INJ VIAL 1 5 ML, MULTIVI... 999 MG IV CONT (02:20)
--- NOTE | 2020-06-16 02:20 | PC.NURSE ---
Pt. unable to void at this time.
[2020-06-16 02:25] LABS: Alanine Aminotransferase 158 U/L (4-35); Albumin Level 4.6 g/dL (3.5-5.1); Alkaline Phosphatase 70 U/L (38-126); Anion Gap 14 mmol/L (8-16); Aspartate Amino Transferase 207 U/L (14-36); Bilirubin,Total 0.8 mg/dL (0.2-1.3); Blood Urea Nitrogen 6 mg/dL (7-17); Calcium 8.8 mg/dL (8.4-10.2); Carbon Dioxide 20 mmol/L (22-30); Chloride 104 mmol/L (98-107); Estimated CRCL calculation 131 ml/min; Estimated Glomerular Filt Rate > 60; Glucose 156 mg/dL (65-105); Lipase 381 U/L (23-300); Magnesium 1.2 mg/dL (1.6-2.3); Sodium 138 mmol/L (137-145)
--- NOTE | 2020-06-16 02:30 | PC.NURSE ---
Pt. attempting to urinate.
[2020-06-16] MEDS: LACTATED RINGERS 1,000 ML 999 ML IV CONT ×2 (02:36→04:09)
--- NOTE | 2020-06-16 02:41 | PC.NURSE ---
Pt. attempt for urine unsuccessful
[2020-06-16] MEDS: MAGNESIUM SULF 2 GM/WATER 50ML 2 GM/50 ML BAG IVPB (02:50)
[2020-06-16 03:53] VITALS: BP 134/83; PULSE 129; RESP 28; O2SAT 90
[2020-06-16 03:55] LABS: Add Urine Microscopic? YES; Appearance Urine Clear (Clear); Bilirubin Urine Negative (Negative); Blood Urine Negative (Negative); Color Urine Yellow (Yellow); Glucose Urine UA 3+ mg/dL (Negative); Ketones Urine Trace mg/dL (Negative); Leukocyte Esterase Ur Negative LEU/UL (Negative); Mucus Urine Moderate /lpf; Nitrate Urine Negative (Negative); Protein Urine 1+ mg/dL (Negative); RBC Urine 0-2 /hpf (0-2); Specific Grav Ur 1.017 (1.001-1.035); Squamous Epithelial Cell Urine Moderate /hpf (Few); WBC Urine 0-3 /hpf
[2020-06-16 04:57] VITALS: BP 109/72; PULSE 109; RESP 26; O2SAT 96
[2020-06-16] MEDS: MORPHINE SULFATE (*CRX) 4 MG/ML INJ IV PUSH (05:29)
[2020-06-16] MEDS: BELLADONNA ALK/PHENOB ELIX 10 ML, MAG HYDROX/ALUMINUM HYD/SIMETH 30 ML, LIDOCAINE HCL 2... PO (05:31)
--- NOTE | 2020-06-16 05:43 | ECG_ITS ---
Measurements Intervals [place] Rate: 144 P: 32 [place]: 144 QRS: 30 QRSD: 93 T: 17 QT: 332 QTc: 514 Interpretive Statements SINUS TACHYCARDIA BORDERLINE ST-T WAVE ABNORMALITY- INF/HIGH LAT LEADS BASELINE ARTIFACT- I, III, AVL ABNORMAL ECG Electronically Signed On 06-16-2020 6:50:08 NETWORK OPERATIONS ANALYST by Cortez Frank D.O.
[2020-06-16 06:10] VITALS: BP 112/73; PULSE 126; RESP 27; O2SAT 93
== END 2020-06-16 06:10 | disposition home or self-care (01) ==
PROVIDERS: Emergency Provider Emergency Medicine; PCP Internal Medicine
DX: F10.239 Alcohol dependence with withdrawal, unspecified (principal); R00.0 Tachycardia, unspecified; R94.31 Abnormal electrocardiogram [ECG] [EKG]; F17.210 Nicotine dependence, cigarettes, uncomplicated; Z87.74 Personal history of (corrected) congenital malformations of heart and circulatory system
CPT/HCPCS: 36415; 71046; 80053; 81001; 83690; 83735; 85025; 85055; 93005; 96361; 96365; 96367; 96375; 96376; 99284; A9270; J2060; J2270; J2405; J3411; J3475; J7120; J7121

== ENCOUNTER 2020-12-21 22:46 | Emergency (ER) | payer OTHER, SELFPAY ==
[2020-12-21 22:49] VITALS: BP 138/84; PULSE 102; RESP 19; TEMP 37.4; O2SAT 99
[2020-12-21] MEDS: LORazepam INJ (*CRX) 2 MG/ML VIAL 0.5 MG IV PUSH (23:26)
--- NOTE | 2020-12-21 23:52 | ED.ALCOHOL ---
HPI - Alcohol General Chief Complaint: Alcohol Stated Complaint: etoh w/d Time Seen by Provider: 12/21/20 23:01 History of Present Illness HPI narrative: Patient presents with concern for alcohol withdrawal. Patient reports a history of of alcohol withdrawal and seizures. Reports she has been drinking alcohol for the past 2 months. She reports prior to that she was sober for 6 months. Reports she has paresthesias in her hands which she has had in the past is a usual experience for her when she is withdrawing from alcohol. She denies any headaches, nausea, vomiting, abdominal pain. Related Data Home Medications Medication Instructions Recorded Confirmed acetaminophen 500 mg tablet 500 mg PO Q6H PRN 05/11/20 05/16/20 ibuprofen 800 mg tablet 800 mg PO .prn tablet 05/11/20 05/16/20 magnesium gluconate 27 mg 27 mg PO DAILY tablet 05/11/20 05/16/20 magnesium (500 mg) tablet multivitamin with minerals 1 tablet PO DAILY 05/11/20 05/16/20 omeprazole 20 mg capsule,delayed 20 mg PO .prn cap 05/11/20 05/16/20 release Allergies Allergy/AdvReac Type Severity Reaction Status Date / Time codeine Allergy Mild stomach Verified 06/16/20 02:21 pains Sulfa (Sulfonamide Allergy Unknown Unknown Verified 06/16/20 02:21 Antibiotics) rifampin Allergy Unknown Verified 06/16/20 02:21 Review of Systems Review of Systems: CONSTITUTIONAL: Denies fever, chills, or sweats. EYES: Denies visual changes, redness, or discharge. ENT: Denies rhinorrhea, congestion, sore throat, or otalgia. CARDIOVASCULAR: Denies chest pain, palpitations, or edema. RESPIRATORY: Denies cough or dyspnea. GASTROINTESTINAL: Denies abdominal pain, nausea, vomiting, or diarrhea. GENITOURINARY: Denies dysuria or hematuria. SKIN: Denies rash or itching. MUSCULOSKELETAL: Denies back pain, joint pain, or myalgia. NEUROLOGIC: Denies headache, numbness, dizziness, or weakness. PSYCHIATRIC: Denies anxiety or depression. All systems reviewed & are unremarkable except as noted in HPI and below PMFSH Past Medical History Medical History Acid reflux Alcoholism Broken tibia H/O: depression Inguinal hernia 2020 Muscle deformity Muscle flap reconstruction Surgical History Surgical History H/O congenital atrial septal defect (ASD) repair History of ankle surgery Bilateral ankles History of cholecystectomy History of hernia surgery History of left knee surgery History of orthopedic surgery LLE 18 surgeries Family History Family History Father Alcoholism CHF (congestive heart failure) Cancer Kidney disease Liver failure Mother Eosinophilic granuloma of lung Alcoholism COPD (chronic obstructive pulmonary disease) Heart disease Grandparent Acute myocardial infarction Social History Social History Smoking packs per day: 1 Smoking cigarettes per day: 20.0 Years smoked: 24 Smoking pack-years: 24.00 Smoking status: Current every day smoker Tobacco type: cigarettes Second hand tobacco smoke exposure: Yes Alcohol intake: former Drinks per week: 7 Substance use: current Substance use type: marijuana Gender identity (if verbalized by the patient): Female Spiritual care concerns: No Exam Narrative: GENERAL: Well-appearing, well-nourished, and in no acute distress. HEAD: Normocephalic, atraumatic. EYES: PERRLA and EOMI. ENT: Nares clear, no rhinorrhea or epistaxis. Mucous membranes moist. NECK: Supple. No masses. No JVD ABDOMEN: Soft, nontender, nondistended, normal active bowel sounds. EXTREMITIES: Normal range of motion. No edema. SKIN: Warm, dry, no rash. NEURO: No focal deficits. Alert and oriented x3. PSYCH: Normal mood and affect. Course Reevaluation(s) Reevaluation #1: Patient is rest
[2020-12-21 23:55] LABS: Alanine Aminotransferase 63 U/L (4-35); Albumin Level 4.6 g/dL (3.5-5.1); Alkaline Phosphatase 82 U/L (38-126); Anion Gap 10 mmol/L (8-16); Aspartate Amino Transferase 63 U/L (14-36); Bilirubin,Total 0.3 mg/dL (0.2-1.3); Blood Urea Nitrogen 9 mg/dL (7-17); Calcium 8.8 mg/dL (8.4-10.2); Carbon Dioxide 25 mmol/L (22-30); Chloride 109 mmol/L (98-107); Estimated CRCL calculation 146 ml/min; Estimated Glomerular Filt Rate > 60; Glucose 97 mg/dL (65-110); Potassium 3.6 mmol/L (3.4-5.0); Sodium 144 mmol/L (137-145)
[2020-12-21] MEDS: THIAMINE HCL INJ 100 MG, FOLIC ACID INJ 1 MG, MULTIVITAMINS-12 INJ VIAL 1 5 ML, MULTIVI... 125 MG IV CONT (23:59)
[2020-12-22] VITALS: BP 118/71; PULSE 87; RESP 14; O2SAT 100
[2020-12-22 00:16] LABS: Basophils Percent Auto 0.6 % (0.2-1.2); Eosinophils Absolute Auto 0.1 K/mm3 (0-0.3); Eosinophils Percent Auto 2.2 % (0-4.4); Hematocrit 41.3 % (37.0-47.0); Hemoglobin 13.7 g/dL (12.0-15.0); Immature Granulocyte Absolute 0.01 K/mm3 (0.00-0.031); Immature Granulocyte Percent A 0.2 % (0-0.5); Lymphocytes Absolute Auto 3.18 K/mm3 (0.9-3.2); Lymphocytes Percent Auto 48.8 % (18.3-44.2); Mean Corpuscular HGB Conc 33.2 g/dl (32-36); Mean Corpuscular Volume 93.4 fl (80-100); Monocytes Absolute Auto 0.3 K/mm3 (0.1-0.6); Monocytes Percent Auto 4.5 % (2.6-8.5); Neutrophils Absolute Auto 2.9 K/mm3 (1.3-6.7); Neutrophils Percent Auto 43.7 % (45.5-73.1); Platelet Count Result 164 k/mm3 (150-375); Red Blood Count 4.42 M/mm3 (4.2-5.4); Red Cell Distribution Width 13.5 % (11.5-14.5); White Blood Count 6.5 K/mm3 (4.5-10.0)
[2020-12-22 00:32] LABS: Ethanol 398 mg/dL (<10)
[2020-12-22 00:48] VITALS: BP 138/89; PULSE 89; RESP 14; O2SAT 99
[2020-12-22 01:17] LABS: Add Urine Microscopic? YES; Appearance Urine Clear (Clear); Bacteria Urine Trace /hpf; Bilirubin Urine Negative (Negative); Blood Urine 1+ (Negative); Color Urine Yellow (Yellow); Glucose Urine UA Negative (Negative); Ketones Urine Negative (Negative); Leukocyte Esterase Ur Negative LEU/UL (Negative); Mucus Urine Rare /lpf; Nitrate Urine Negative (Negative); Protein Urine Negative (Negative); RBC Urine 0-2 /hpf (0-2); Specific Grav Ur 1.012 (1.001-1.035); Squamous Epithelial Cell Urine Few /hpf (Few); Urobilinogen Urine Negative mg/dL (<2.0); WBC Urine 0-3 /hpf
[2020-12-22 01:27] LABS: Amphetamine Screen Urine Negative (Negative); Barbiturate Screen Urine Negative (Negative); Benzodiazepines Screen Urine Negative (Negative); Cannabinoid Screen Urine Negative (Negative); Cocaine Screen Urine Negative (Negative); Methadone Screen Urine Negative (Negative); Opiate Screen Urine Negative (Negative); Phencyclidine Screen Urine Negative (Negative)
[2020-12-22 01:50] VITALS: BP 131/80; PULSE 77; RESP 20; O2SAT 97
== END 2020-12-22 01:50 | disposition home or self-care (01) ==
PROVIDERS: Emergency Provider Emergency Medicine
DX: F10.239 Alcohol dependence with withdrawal, unspecified (principal); K21.9 Gastro-esophageal reflux disease without esophagitis; Z87.74 Personal history of (corrected) congenital malformations of heart and circulatory system; F17.210 Nicotine dependence, cigarettes, uncomplicated; Y90.8 Blood alcohol level of 240 mg/100 ml or more
CPT/HCPCS: 36415; 80053; 80307; 81001; 81025; 85025; 96365; 96375; 99284; J2060; J3411; J3475; J7030

== ENCOUNTER 2020-12-26 20:42 | Emergency (ER) | payer OTHER, SELFPAY ==
--- NOTE | ~2020-12-26 | CT_ITS ---
EXAMINATION: CT abdomen pelvis w con DATE: 12/27/2020 03:21 INDICATION: Right lower quadrant abdominal pain. TECHNIQUE: Computed tomography (CT) of the abdomen and pelvis was performed with 100 mL Omnipaque 350 intravenous contrast. Automated exposure control and iterative reconstruction technique were employe d. The dose-length product was 1004.55 mGy-cm. COMPARISON: CT abdomen and pelvis 04/08/2020 FINDINGS: The visualized portions of the lung bases demonstrate mild atelectasis. No pleural effusion . The heart size is normal. No pericardial effusion. There is diffuse hepatic steatosis. There are ch anges of cholecystectomy. The spleen, pancreas, adrenal glands, and kidneys are normal. There are no dilated loops of bowel. The appendix is normal. There are no pathologically enlarged lymph nodes. The re is no free intraperitoneal fluid. 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 There is 15 mm ante rolisthesis of L4 on L5. There is severe degenerative disc disease at L4-L5. IMPRESSION: 1. Diffuse hepatic steatosis. Reviewed, dictated and finalized at location A.
[2020-12-26 20:45] VITALS: BP 143/87; PULSE 108; RESP 21; TEMP 37.2; O2SAT 98
[2020-12-26 21:06] LABS: Basophils Percent Auto 0.5 % (0.2-1.2); Eosinophils Absolute Auto 0.1 K/mm3 (0-0.3); Eosinophils Percent Auto 0.7 % (0-4.4); Hematocrit 42.8 % (37.0-47.0); Hemoglobin 14.6 g/dL (12.0-15.0); Immature Granulocyte Absolute 0.01 K/mm3 (0.00-0.031); Immature Granulocyte Percent A 0.1 % (0-0.5); Immature Platelet Fraction Pct 5.3 % (0.9-11.2); Lymphocytes Absolute Auto 3.22 K/mm3 (0.9-3.2); Lymphocytes Percent Auto 42.9 % (18.3-44.2); Mean Corpuscular HGB Conc 34.1 g/dl (32-36); Mean Corpuscular Hemoglobin 30.9 pg (26-34); Mean Corpuscular Volume 90.5 fl (80-100); Mean Platelet Volume 9.7 fl (7.4-10.4); Monocytes Absolute Auto 0.5 K/mm3 (0.1-0.6); Monocytes Percent Auto 7.1 % (2.6-8.5); Neutrophils Absolute Auto 3.7 K/mm3 (1.3-6.7); Neutrophils Percent Auto 48.7 % (45.5-73.1); Platelet Count Result 122 k/mm3 (150-375); Red Blood Count 4.73 M/mm3 (4.2-5.4); White Blood Count 7.5 K/mm3 (4.5-10.0)
[2020-12-26 21:14] LABS: Alanine Aminotransferase 64 U/L (4-35); Albumin Level 4.9 g/dL (3.5-5.1); Alkaline Phosphatase 100 U/L (38-126); Anion Gap 16 mmol/L (8-16); Aspartate Amino Transferase 72 U/L (14-36); Bilirubin,Total 0.8 mg/dL (0.2-1.3); Blood Urea Nitrogen 14 mg/dL (7-17); Calcium 8.8 mg/dL (8.4-10.2); Carbon Dioxide 20 mmol/L (22-30); Chloride 105 mmol/L (98-107); Estimated CRCL calculation 123 ml/min; Estimated Glomerular Filt Rate > 60; Glucose 124 mg/dL (65-110); Lipase 396 U/L (23-300); Potassium 3.6 mmol/L (3.4-5.0); Sodium 141 mmol/L (137-145)
[2020-12-26 23:17] VITALS: BP 124/86; PULSE 111; RESP 20; TEMP 36.8; O2SAT 94
[2020-12-27 00:49] VITALS: BP 146/95; PULSE 107; RESP 17; O2SAT 99
--- NOTE | 2020-12-27 00:51 | ED.ABDPAIN ---
HPI - Abdominal Pain General Chief Complaint: Abdominal Pain Stated Complaint: acute RLQ abdominal pain Time Seen by Provider: 12/27/20 00:44 Source: patient History of Present Illness HPI narrative: Patient presents with right lower quadrant abdominal pain. Pain is achy, constant, worse with moving around there is no radiation. Denies nausea and vomiting denies any diarrhea or constipation she denies any urinary symptoms. Denies any hematuria. She reports she has been drinking alcohol all day because she has been hurting now feels like her hands were shaking like she is withdrawing. Related Data Home Medications Medication Instructions Recorded Confirmed acetaminophen 500 mg tablet 500 mg PO Q6H PRN 05/11/20 05/16/20 ibuprofen 800 mg tablet 800 mg PO .prn tablet 05/11/20 05/16/20 magnesium gluconate 27 mg 27 mg PO DAILY tablet 05/11/20 05/16/20 magnesium (500 mg) tablet multivitamin with minerals 1 tablet PO DAILY 05/11/20 05/16/20 omeprazole 20 mg capsule,delayed 20 mg PO .prn cap 05/11/20 05/16/20 release Allergies Allergy/AdvReac Type Severity Reaction Status Date / Time codeine Allergy Mild stomach Verified 12/27/20 00:51 pains Sulfa (Sulfonamide Allergy Unknown Unknown Verified 12/27/20 00:51 Antibiotics) rifampin Allergy Unknown Verified 12/27/20 00:51 Review of Systems Review of Systems: CONSTITUTIONAL: Denies fever, chills, or sweats. EYES: Denies visual changes, redness, or discharge. ENT: Denies rhinorrhea, congestion, sore throat, or otalgia. CARDIOVASCULAR: Denies chest pain, palpitations, or edema. RESPIRATORY: Denies cough or dyspnea. GASTROINTESTINAL: Denies nausea, vomiting, or diarrhea. GENITOURINARY: Denies dysuria or hematuria. SKIN: Denies rash or itching. MUSCULOSKELETAL: Denies back pain, joint pain, or myalgia. NEUROLOGIC: Denies headache, numbness, dizziness, or weakness. PSYCHIATRIC: Denies anxiety or depression. All systems reviewed & are unremarkable except as noted in HPI and below PMFSH Past Medical History Medical History Acid reflux Alcoholism Broken tibia H/O: depression Inguinal hernia 2020 Muscle deformity Muscle flap reconstruction Surgical History Surgical History H/O congenital atrial septal defect (ASD) repair History of ankle surgery Bilateral ankles History of cholecystectomy History of hernia surgery History of left knee surgery History of orthopedic surgery LLE 18 surgeries Family History Family History Father Alcoholism CHF (congestive heart failure) Cancer Kidney disease Liver failure Mother Eosinophilic granuloma of lung Alcoholism COPD (chronic obstructive pulmonary disease) Heart disease Grandparent Acute myocardial infarction Social History Social History Smoking packs per day: 1 Smoking cigarettes per day: 20.0 Years smoked: 24 Smoking pack-years: 24.00 Smoking status: Current every day smoker Tobacco type: cigarettes Second hand tobacco smoke exposure: Yes Alcohol intake: former Drinks per week: 7 Substance use: current Substance use type: marijuana Gender identity (if verbalized by the patient): Female Spiritual care concerns: No Exam Narrative: GENERAL: Well-appearing, well-nourished, and in no acute distress. HEAD: Normocephalic, atraumatic. EYES: PERRLA and EOMI. ENT: Nares clear, no rhinorrhea or epistaxis. Mucous membranes moist. NECK: Supple. No masses. No JVD CHEST: Clear to auscultation. No respiratory distress. No wheezes rales or rhonchi HEART: Regular rate and rhythm. No murmur heard. Normal peripheral pulses. ABDOMEN: Moderate tenderness in the suprapubic area and right lower quadrant no rebound or guardingactive bowel sounds. EXTREMITIES: Norm
[2020-12-27] MEDS: SODIUM CHLORIDE 0.9% IV 1,000 ML 999 ML IV CONT ×2 (00:56→06:34)
[2020-12-27] MEDS: LORazepam INJ (*CRX) 2 MG/ML VIAL 0.5 MG IV PUSH ×2 (00:56→02:26)
--- NOTE | 2020-12-27 01:26 | PC.NURSE ---
asked pt for urine sample and pt states she is unable to go at this time and is declining straight cath. pt states she will try after IV fluids are finished.
[2020-12-27 01:28] LABS: Ethanol 286 mg/dL (<10)
[2020-12-27 02:07] VITALS: BP 133/93; PULSE 101; RESP 14; O2SAT 97
[2020-12-27 02:56] LABS: Add Urine Microscopic? YES; Appearance Urine Clear (Clear); Bacteria Urine Trace /hpf; Bilirubin Urine Negative (Negative); Blood Urine 1+ (Negative); Color Urine Amber (Yellow); Glucose Urine UA Negative (Negative); Ketones Urine 1+ mg/dL (Negative); Leukocyte Esterase Ur Negative LEU/UL (Negative); Mucus Urine Heavy /lpf; Nitrate Urine Negative (Negative); Protein Urine 2+ mg/dL (Negative); Squamous Epithelial Cell Urine Occasional /hpf (Few)
[2020-12-27 05:08] VITALS: BP 143/85; PULSE 103; RESP 20; O2SAT 97
[2020-12-27] MEDS: LORazepam INJ (*CRX) 2 MG/ML VIAL 1 MG IV PUSH (06:34)
[2020-12-27 06:35] VITALS: BP 148/98; PULSE 109; RESP 23; O2SAT 98
[2020-12-27 07:33] VITALS: BP 153/98; PULSE 100; RESP 22; O2SAT 99
== END 2020-12-27 07:37 | disposition home or self-care (01) ==
PROVIDERS: Emergency Medicine; Emergency Provider Emergency Medicine
DX: R10.9 Unspecified abdominal pain (principal); F10.20 Alcohol dependence, uncomplicated; Y90.0 Blood alcohol level of less than 20 mg/100 ml; K76.0 Fatty (change of) liver, not elsewhere classified; F17.210 Nicotine dependence, cigarettes, uncomplicated; F32.9 Major depressive disorder, single episode, unspecified
CPT/HCPCS: 36415; 74177; 80053; 80307; 81001; 81025; 83690; 85025; 85055; 96361; 96374; 96375; 99284; J2060; J7030; Q9967

== ENCOUNTER 2021-02-10 17:17 | Emergency (ER) | payer OTHER, SELFPAY ==
[2021-02-10 17:18] VITALS: BP 143/90; PULSE 112; RESP 18; TEMP 36.7; O2SAT 98
[2021-02-10 17:59] LABS: Basophils Absolute Auto 0.1 K/mm3 (0.0-0.1); Basophils Percent Auto 1.4 % (0.2-1.2); Eosinophils Percent Auto 0.3 % (0-4.4); Hematocrit 48.6 % (37.0-47.0); Hemoglobin 16.9 g/dL (12.0-15.0); Immature Granulocyte Absolute 0.02 K/mm3 (0.00-0.031); Immature Granulocyte Percent A 0.3 % (0-0.5); Lymphocytes Absolute Auto 2.48 K/mm3 (0.9-3.2); Lymphocytes Percent Auto 42.6 % (18.3-44.2); Mean Corpuscular HGB Conc 34.8 g/dl (32-36); Mean Corpuscular Hemoglobin 31.9 pg (26-34); Mean Corpuscular Volume 91.7 fl (80-100); Mean Platelet Volume 9.3 fl (7.4-10.4); Monocytes Absolute Auto 0.6 K/mm3 (0.1-0.6); Neutrophils Absolute Auto 2.6 K/mm3 (1.3-6.7); Neutrophils Percent Auto 45.4 % (45.5-73.1); Platelet Count Result 232 k/mm3 (150-375); Red Cell Distribution Width 14.5 % (11.5-14.5); White Blood Count 5.8 K/mm3 (4.5-10.0)
[2021-02-10 18:10] LABS: Alanine Aminotransferase 124 U/L (4-35); Albumin Level 5.2 g/dL (3.5-5.1); Alkaline Phosphatase 94 U/L (38-126); Anion Gap 19 mmol/L (8-16); Aspartate Amino Transferase 130 U/L (14-36); Bilirubin,Total 0.7 mg/dL (0.2-1.3); Blood Urea Nitrogen 10 mg/dL (7-17); Calcium 9.1 mg/dL (8.4-10.2); Carbon Dioxide 22 mmol/L (22-30); Chloride 103 mmol/L (98-107); Estimated CRCL calculation 122 ml/min; Estimated Glomerular Filt Rate > 60; Glucose 124 mg/dL (65-110); Sodium 144 mmol/L (137-145)
[2021-02-10 18:21] LABS: Acetaminophen < 10 ug/mL (10-30); Ethanol 354 mg/dL (<10); Salicylate < 1.0 mg/dL (2-20)
--- NOTE | 2021-02-10 18:41 | ED.GENADULT ---
HPI - General Adult General Chief complaint: Unspecified Stated complaint: i need to quit drinking Time Seen by Provider: 02/10/21 18:36 Source: patient Mode of arrival: ambulatory Limitations: no limitations History of Present Illness HPI narrative: Patient is a 40-year-old female here wanting to go into alcohol rehab. States that she needs help from her drinking. Patient admits to drinking today. Patient states that 8 months ago she was at [facility] for 2 weeks for alcohol rehab. Related Data Home Medications Medication Instructions Recorded Confirmed duloxetine mg PO 02/10/21 02/10/21 olanzapine mg 02/10/21 tizanidine mg 02/10/21 Allergies Allergy/AdvReac Type Severity Reaction Status Date / Time codeine Allergy Mild stomach Verified 02/10/21 17:21 pains Sulfa (Sulfonamide Allergy Unknown Unknown Verified 02/10/21 17:21 Antibiotics) rifampin Allergy Unknown Verified 02/10/21 17:21 Review of Systems Review of Systems: All systems reviewed & are unremarkable except as noted in HPI and below Constitutional: Constitutional: Denies body ache(s), Denies chills, Denies excessive sweating, Denies fatigue, Denies fever(s), Denies headache(s), Denies lethargy, Denies malaise, Denies weakness and Denies weight loss Eyes: Eyes: Denies blurry vision, Denies change in vision and Denies loss of vision ENT: Denies dizziness, Denies ear discharge, Denies headache(s), Denies lip swelling, Denies epistaxis, Denies nasal congestion, Denies neck pain, Denies throat swelling and Denies tongue swelling Cardiovascular: Cardiovascular: Denies chest pain, Denies chest pain at rest, Denies chest pain with activity, Denies diaphoresis, Denies rapid heart rate, Denies edema, Denies irregular heart rhythm, Denies lightheadedness, Denies palpitations, Denies dyspnea and Denies dyspnea on exertion Respiratory: Respiratory: Denies chest congestion, Denies cough, Denies hemoptysis, Denies dyspnea and Denies dyspnea on exertion Gastrointestinal: Gastrointestinal: Denies abdominal pain, Denies melena, Denies hematochezia, Denies diarrhea, Denies nausea, Denies vomiting and Denies hematemesis Musculoskeletal: Musculoskeletal: Denies abnormal gait, Denies deformity, Denies joint swelling, Denies limited range of motion, Denies neck pain and Denies numbness Neurologic: Denies Abnormal speech present, Denies abnormal gait, Denies confusion, Denies dizziness, Denies headache(s), Denies focal weakness, Denies loss of vision, Denies numbness, Denies Other visual disturbances, Denies Sensory deficit (Neuro) and Denies weakness Psychiatric: Psychiatric: Denies confusion, Denies depression, Denies auditory hallucinations, Denies homicidal ideation and Denies suicidal ideation Endocrine: Endocrine: Denies cold intolerance, Denies excessive sweating, Denies fatigue, Denies heat intolerance and Denies palpitations Hematologic/Lymphatic: Hematologic/Lymphatic: Denies easy bleeding and Denies easy bruising Allergic/Immunologic: Allergic/Immunologic: Denies lip swelling, Denies throat swelling and Denies tongue swelling PMFSH Past Medical History Medical History Acid reflux Alcoholism Broken tibia H/O: depression Inguinal hernia 2020 Muscle deformity Muscle flap reconstruction Surgical History Surgical History H/O congenital atrial septal defect (ASD) repair History of ankle surgery Bilateral ankles History of cholecystectomy History of hernia surgery History of left knee surgery History of orthopedic surgery LLE 18 surgeries Family History Family History Father Alcoholism CHF (congestive heart failure) Cancer Kidney disease Liver failure Mother Eosinophilic granuloma of lung Alcoholism COPD (chronic obstructive pulmonary disease) Heart disease Grandparent
== END 2021-02-10 20:24 | disposition home or self-care (01) ==
PROVIDERS: Emergency Provider Emergency Medicine
DX: F10.20 Alcohol dependence, uncomplicated (principal); R74.01 Elevation of levels of liver transaminase levels; K21.9 Gastro-esophageal reflux disease without esophagitis; F32.9 Major depressive disorder, single episode, unspecified; Z87.74 Personal history of (corrected) congenital malformations of heart and circulatory system; F17.210 Nicotine dependence, cigarettes, uncomplicated; Y90.8 Blood alcohol level of 240 mg/100 ml or more
CPT/HCPCS: 36415; 80053; 80307; 84443; 85025; 99283

== ENCOUNTER 2022-07-13 12:45 | Emergency (ER) | payer OTHER, SELFPAY ==
[2022-07-13 12:52] VITALS: BP 147/79; PULSE 89; RESP 16; TEMP 36.7; O2SAT 98
[2022-07-13 13:30] VITALS: BP 149/74; PULSE 77; RESP 18; O2SAT 100
[2022-07-13] MEDS: ONDANSETRON INJ 4 MG/2 ML VIAL IV PUSH (13:30)
[2022-07-13] MEDS: SODIUM CHLORIDE 0.9% IV 1,000 ML 999 ML IV CONT (13:30)
[2022-07-13] MEDS: DICYCLOMINE HCL INJ 20 MG/2 ML VIAL IM (13:38)
[2022-07-13 13:39] LABS: Basophils Absolute Auto 0.1 K/mm3 (0.0-0.1); Basophils Percent Auto 0.4 % (0.2-1.2); Eosinophils Absolute Auto 0.2 K/mm3 (0-0.3); Eosinophils Percent Auto 1.1 % (0-4.4); Hematocrit 42.4 % (37.0-47.0); Hemoglobin 14.6 g/dL (12.0-15.0); Immature Granulocyte Absolute 0.05 K/mm3 (0.00-0.031); Immature Granulocyte Percent A 0.4 % (0-0.5); Lymphocytes Absolute Auto 1.95 K/mm3 (0.9-3.2); Lymphocytes Percent Auto 13.8 % (18.3-44.2); Mean Corpuscular HGB Conc 34.4 g/dl (32-36); Mean Corpuscular Hemoglobin 31.5 pg (26-34); Mean Corpuscular Volume 91.6 fl (80-100); Mean Platelet Volume 10.3 fl (7.4-10.4); Monocytes Absolute Auto 0.6 K/mm3 (0.1-0.6); Monocytes Percent Auto 4.2 % (2.6-8.5); Neutrophils Absolute Auto 11.4 K/mm3 (1.3-6.7); Neutrophils Percent Auto 80.1 % (45.5-73.1); Platelet Count Result 243 k/mm3 (150-375); Red Blood Count 4.63 M/mm3 (4.2-5.4); Red Cell Distribution Width 12.9 % (11.5-14.5); White Blood Count 14.2 K/mm3 (4.5-10.0)
[2022-07-13 13:51] LABS: Alanine Aminotransferase 201 U/L (6-35); Albumin Level 4.8 g/dL (3.5-5.1); Alkaline Phosphatase 76 U/L (38-126); Anion Gap 11 mmol/L (8-16); Aspartate Amino Transferase 104 U/L (14-36); Bilirubin,Total 0.6 mg/dL (0.2-1.3); Blood Urea Nitrogen 13 mg/dL (7-17); Carbon Dioxide 25 mmol/L (22-30); Chloride 104 mmol/L (98-107); Estimated CRCL calculation 121 ml/min; Estimated Glomerular Filt Rate > 60; Glucose 131 mg/dL (65-110); Lipase 90 U/L (23-300); Potassium 3.7 mmol/L (3.4-5.0); Sodium 140 mmol/L (137-145)
--- NOTE | 2022-07-13 13:56 | ED.NAVMDI ---
HPI - Nausea/Vomiting/Diarrhea General Chief complaint: Nausea/Vomiting/Diarrhea Stated complaint: vomiting Time Seen by Provider: 07/13/22 13:02 History of Present Illness HPI Narrative: 41-year-old female history of EtOH abuse presents to the emergency room for evaluation of nausea vomiting. Patient states she has been experiencing multiple episodes of nonbilious and nonbloody emesis since early this morning. Admits to heavy drinking last night. Nausea vomiting is associated with abdominal cramping Related Data Home Medications Medication Instructions Recorded Confirmed duloxetine 60 mg capsule,delayed mg PO 02/10/21 02/10/21 release olanzapine 5 mg tablet mg 02/10/21 tizanidine 4 mg tablet mg 02/10/21 Allergies Allergy/AdvReac Type Severity Reaction Status Date / Time codeine Allergy Mild stomach Verified 07/13/22 13:09 pains Sulfa (Sulfonamide Allergy Unknown Unknown Verified 07/13/22 13:09 Antibiotics) rifampin Allergy Unknown Verified 07/13/22 13:09 Review of Systems Review of Systems: CONSTITUTIONAL: Denies fever, chills, or sweats. EYES: Denies visual changes, redness, or discharge. ENT: Denies rhinorrhea, congestion, sore throat, or otalgia. CARDIOVASCULAR: Denies chest pain, palpitations, or edema. RESPIRATORY: Denies cough or dyspnea. GASTROINTESTINAL: Reports abdominal pain, nausea, vomiting GENITOURINARY: Denies dysuria or hematuria. SKIN: Denies rash or itching. MUSCULOSKELETAL: Denies back pain, joint pain, or myalgia. NEUROLOGIC: Denies headache, numbness, dizziness, or weakness. PSYCHIATRIC: Denies anxiety or depression. [facility] Past Medical History Medical History Acid reflux Alcoholism Broken tibia H/O: depression Inguinal hernia 2020 Muscle deformity Muscle flap reconstruction Surgical History Surgical History H/O congenital atrial septal defect (ASD) repair History of ankle surgery Bilateral ankles History of cholecystectomy History of hernia surgery History of left knee surgery History of orthopedic surgery LLE 18 surgeries Family History Family History Father Alcoholism CHF (congestive heart failure) Cancer Kidney disease Liver failure Mother Eosinophilic granuloma of lung Alcoholism COPD (chronic obstructive pulmonary disease) Heart disease Grandparent Acute myocardial infarction Social History Social History Smoking packs per day: 1 Smoking cigarettes per day: 20.0 Years smoked: 24 Smoking pack-years: 24.00 Smoking status: Current every day smoker Tobacco type: cigarettes Second hand tobacco smoke exposure: Yes Alcohol intake: former Drinks per week: 7 Substance use: current Substance use type: marijuana Gender identity (if verbalized by the patient): Female Spiritual care concerns: No Exam Narrative: GENERAL: Ill-appearing, well-nourished, no physical limitations, and in no acute distress. HEAD: Normocephalic, atraumatic. EYES: Conjunctivae normal, PERRLA and EOMI. CHEST: Clear to auscultation. No respiratory distress. No wheezes rales or rhonchi. HEART: Regular rate and rhythm. No murmur heard. Normal peripheral pulses. ABDOMEN: Soft, nontender, nondistended, normal active bowel sounds. EXTREMITIES: Normal range of motion. No edema. No clubbing or cyanosis SKIN: Warm, dry, no rash. No noted wounds NEURO: No focal deficits. Alert and oriented x3. MAEW. CN's II-XI intact bilaterally, normal gait PSYCH: Cooperative. Normal mood and affect. Course Vital Signs Vital signs: Vital Signs Temperature 36.7 C 07/13/22 12:52 Pulse Rate 89 07/13/22 12:52 Respiratory Rate 16 07/13/22 12:52 Blood Pressure 147/79 H 07/13/22 12:52 Pulse Oximetry 98 07/13/22 12:52 Temper
[2022-07-13 14:00] VITALS: BP 129/85; PULSE 62; RESP 16; O2SAT 100
[2022-07-13 14:14] LABS: Appearance Urine Turbid (Clear); Bacteria Urine Rare /hpf; Bilirubin Urine Negative (Negative); Blood Urine Negative (Negative); Color Urine Dark Yellow (Yellow); Glucose Urine UA Negative (Negative); Ketones Urine 2+ mg/dL (Negative); Leukocyte Esterase Ur Negative LEU/UL (Negative); Nitrate Urine Negative (Negative); Non Pathogenic Casts 0-2; Protein Urine 1+ mg/dL (Negative); RBC Urine 0-2 /hpf (0-2); Specific Grav Ur 1.024 (1.001-1.035); Squamous Epithelial Cell Urine Few /hpf (Few); WBC Urine 0-5 /hpf
[2022-07-13 14:14] LABS: Ethanol < 10 mg/dL (<10)
[2022-07-13 14:16] LABS: Add Urine Microscopic? YES
[2022-07-13 14:30] VITALS: BP 123/82; PULSE 70; RESP 20; O2SAT 99
[2022-07-13] MEDS: THIAMINE HCL 200 MG/2 ML VIAL 100 MG IV PUSH (14:46)
== END 2022-07-13 14:58 | disposition home or self-care (01) ==
PROVIDERS: Emergency Provider Nurse Practitioner Family
DX: F10.229 Alcohol dependence with intoxication, unspecified (principal); R11.2 Nausea with vomiting, unspecified; K21.9 Gastro-esophageal reflux disease without esophagitis; F32.A Depression, unspecified; F17.210 Nicotine dependence, cigarettes, uncomplicated; Y90.9 Presence of alcohol in blood, level not specified; Z87.74 Personal history of (corrected) congenital malformations of heart and circulatory system; Z90.49 Acquired absence of other specified parts of digestive tract
CPT/HCPCS: 36415; 80053; 80307; 81001; 81025; 83690; 85025; 96361; 96372; 96374; 96375; 99284; J0500; J2405; J3411; J7030

== ENCOUNTER 2024-05-23 13:09 | Emergency (ER) | payer OTHER, SELFPAY ==
--- OUTSIDE RECORDS SUMMARY | 2024-05-23 13:08 | XMS_ITS | Clinical Summary ---
Author Organization [facility] Address [address] [place] [id number] Care Team Providers Care Equine Internship Name Role Phone Marlin Andujar Unavailable Unavailable No, Physician Primary Care Provider [phone] Allergies Active Allergy Reactions Criticality Noted Date Comments Codeine Stomach upset Low Stomach pain Rifampin Rash Medium 04/13/2019 Sulfa (Sulfonamide Antibiotics) Hives,Rash High Reaction: HIVES, Reaction: Hives, Skin Rash, , , Medications multivitamin capsule Take 1 capsule by mouth daily Active ibuprofen (ADVIL,MOTRIN) 800 mg tablet TAKE 1 TABLET(800 MG) BY MOUTH EVERY 8 HOURS NEEDED FOR PAIN 90 tablet 01/01/2021 Active melatonin 5 mg capsule Take 5 mg by mouth nightly as needed (For sleep) 10/30/[address] (CYMBALTA) 60 mg capsule Take 1 capsule (60 mg total) by mouth daily 30 capsule 03/15/2023 Active QUEtiapine (SEROquel) 100 mg tablet Take 1 tablet (100 mg total) by mouth nightly 30 tablet 03/15/2023 Active Active Problems Problem Noted Date Diagnosed Date Low back pain 03/13/2023 Thrombocytopenia 03/13/2023 Opioid use disorder, mild, on maintenance therap y 03/12/2023 Post-traumatic osteoarthritis of ankles, bilater al 08/16/2020 Hematuria 11/06/2019 Bilateral flank pain 11/06/2019 Alcoholism /alcohol abuse 11/06/2019 Alcohol withdrawal syndrome without complication 04/14/2019 Shoulder pain 11/22/2015 Overview (07/26/2016): Acute pain of left shoulder Instability of knee joint 11/22/2015 Overview (07/26/2016): Other instability, right knee Osteoarthritis of knee 08/08/2015 Overview (07/26/2016): Primary osteoarthritis of left knee Inflammation of ankle joint 08/08/2015 Overview (07/26/2016): Arthritis of ankle 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 Overview (07/26/2016): Osteomyelitis of tibia Dehiscence of wound 10/31/2014 Postoperative wound dehiscence 09/14/2014 Overview (07/26/2016): Wound dehiscence Chondromalacia of patella 05/31/2014 Overview (07/26/2016): Chondromalacia of patella Infection and inflammatory r eaction due to internal orthopedic fixation device 03/16/2014 Overview (07/26/2016): Infection and inflammatory reaction due to internal orthopedic fixation device Closed fracture of shaft of tibia 12/28/2013 Overview (07/26/2016): Closed fracture of shaft of tibia Immunizations Name Administration Dates Next Due Influenza, Quadrivalent, Spl it, Preservative Free, Intramuscular 04/16/2019(Deferred: Patient Refused) Surgical History Surgery Date Site/Laterality Comments OTHER SURGICAL HISTORY Asd repair as a child OTHER SURGICAL HISTORY 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 Medical History Medical History Date Comments Hx Other Medical Vitamin D defic iency Hx Other Medical 1984 Heart surgery Hx Other Medical 1989 Bilateral knee surgery Hx Other Medical 1993 Left knee surge ry Hx Other Medical 1999 Bilateral ankle surgery Hyperlipidemia Hyperlipidemia Personal history of other di seases of the circulatory system History of hypertension - (A dded by TW Conv) Vitamin D deficiency Vitamin D d eficiency - (Added by TW Conv) Personal history of other en docrine, nutritional and metabolic disease History of hyperlipi demia - (Added by TW Conv) History of hypertension Depression Anxiety Family History Medical History Relation Name Comments Hypertension Daughter 1 Hypertension; Hypertension Daughter 2 Family history of hypertension - (Added by TW Conv) Heart disease Father Heart disease; /Family history of cardiac disorder - (Added by TW Conv) Hypertension Father Hypertension; / Family history of hypertension - (Added by TW Conv) Skin cancer Father Cancer, skin; / Family history of skin cancer - (Added by TW Conv) Other Maternal Grandmother sleepin g disorder; COPD Mother COPD; /Family h istory of chronic obstructive pulmonary disease - (Added by TW Conv) Hypertension Mother Hypertension; / Family history of hypertension - (Added by TW Conv) Lung disease Mother Lung disease; Heart disease Paternal Grandmother Heart disease; /Family history of cardiac disorder - (Added by Molecular Imaging Conv) Relation Name Status Comments Daughter 1 Daughter 2 Father Maternal Grandmother Mother Paternal Grandmother Social History Tobacco Use Types Packs/Day Years Used Date Smoking Tobacco: Every Day Cigarettes Smokeless Tobacco: Never Tobacco Cessation:Ready to Q uit: No; Counseling Given: Yes Alcohol Use Standard Drinks/Week Comments Yes 0 (1 standard drink = 0.6 oz pure alcohol) between pint and fifth a day [employer] or bogdan [employer] 3ities Answer Date Recorded In the past 12 months has e [employer], gas, oil, or water [employer] threatened to shut off services in your home? No 03/12/2023 Social Connection and Isolation Panel [NHANES] A nswer Date Recorded In a typical week, how many times do you talk on the phone with family, friends, or neighbors? Three times a week 03/12/2023 How often do you get togethe r with friends or relatives? Three times a week 03/12/2023 How often do you attend chur ch or orthodoxy services? Never 03/12/2023 Do you belong to any clubs o r organizations such as rastafarian groups, unions, fraternal or athletic groups, or school groups? No 03/12/2023 How often do you attend meet ings of the clubs or organizations you belong to? Never 03/12/2023 Marital Status Not on file 03/12/2023 AUDIT-C Answer Date Recorded Q1: How often do you have a drink containing alc ohol? Never 09/19/2020 Average Number of Drinks Not on file 021 Frequency of Binge Drinking Not on file 04/2020 Overall Financial Resource Strain (CARDIA) Answe r Date Recorded How hard is it for you to pa y for the very basics like food, housing, medical care, and heating? Hard 03/12/2023 Hunger Vital Sign Answer Date Recorded Within the past 12 months, y ou worried that your food would run out before you got the money to buy more. Never true 03/12/20 23 Within the past 12 months, t he food you bought just didn't last and you didn't have money to get more. Never true 03/12/2023 PRAPARE - Transportation Answer Date Re corded In the past 12 months, has l ack of transportation kept you from medical appointments or from getting medications? No 02/20 In the past 12 months, has l ack of transportation kept you from meetings, work, or from getting things needed for daily living? No 03/12/2023 Housing Stability Vital Sign Answer Trip e Recorded In the last 12 months, was t here a time when you were not able to pay the mortgage or rent on time? No 03/12/2023 In the last 12 months, how many places have you lived? 1 03/12/2023 In the last 12 months, was t here a time when you did not have a steady place to sleep or slept in a longterm (including now)? No 03/12/2023 Personal Safety Answer Date Recorded Have you ever been in or are you currently in a harmful physical or emotional relationship or is someone making you feel afraid or unsafe? Denies 03/11/2023 Education Answer Date Recorded What is the highest level of school you have completed or the highest degree you have received? Some college, no degree 03/12/2023 Comments No Sex and Gender Information Value Date Recorded Sex Assigned at Not on file Legal Sex Female 10:54 PM ENAMEL SHADER Gender Identity Not on file Sexual Orientation Not on file Obstetrics History Last Filed Vital Signs Vital Sign Reading Time Taken Comments Blood Pressure 152/65 03/15/2023 8:17 AM ENAMEL SHADER Pulse 99 03/15/2023 8:17 AM ENAMEL SHADER Temperature 36.3 ??C (97.3 ??F) 03/15/2023 8:17 AM CS T Respiratory Rate 16 03/15/2023 8:17 AM ENAMEL SHADER Oxygen Saturation 100% 03/15/2023 8:17 AM ENAMEL SHADER Inhaled Oxygen Concentration - - Weight 66.8 kg (147 lb 4.8 oz) 03/15/2023 5:47 A M ENAMEL SHADER Height 170.2 cm (5' 7 ) 03/11/2023 3:55 PM ENAMEL SHADER Body Mass Index 23.07 03/11/2023 3:55 PM ENAMEL SHADER Plan of Treatment Health Maintenance Due Date Last Done Comments Breast Cancer Screening-Mammogram 1981 Cervical Cancer Screening 1981 Depression Screening 1981 Hepatitis C Screening 1981 Pneumococcal vaccine <65 (1 of 2 - PCV) 11/06/1987 Regular Well Visit/Exam 18-64 11/06/1999 Varicella Vaccines (2 of 2 - 13+ 2-dose series) 11/27/2009 10/30/2009 DTaP/Tdap/Td Vaccine (7 - Td or Tdap) 10/31/2019 10/30/2009, 01/31/1997, 12/02/1986, Additional history exists Influenza Vaccine (#1) 2023 HPV Vaccines Aged Out No longer eligi ble based on patient's age to complete this topic Insurance [facility] Advance Directives For more information, please contact: [phone] * Full Code (Latest Code Status on File) Date Activated Date Inactivated Comments 03/11/2023 6:45 PM 03/15/2023 2:38 PM * Full Code Date Activated Date Inactivated Comments 03/11/2023 1:49 PM 03/11/2023 6:45 PM * Full Code Date Activated Date Inactivated Comments 09/19/2020 1:47 PM 09/20/2020 4:10 PM * Full Code Date Activated Date Inactivated Comments 04/13/2019 1:47 PM 04/16/2019 1:00 PM Care Teams Equine Internship Relationship Specialty Start Date End Date No, Physician PCP - General 09/19/20 Marlin Andujar Hairpiece Stylist Addiction Medicine 04/11/20
--- OUTSIDE RECORDS SUMMARY | 2024-05-23 13:08 | XMS_ITS | Referral Summary ---
Author Organization [facility] Address [address] [place] [id number] Care Team Providers Care Retail Merchandising Specialist Name Role Phone Marlin Andujar Unavailable Unavailable No, Physician Primary Care Provider [phone] Allergies Active Allergy Reactions Criticality Noted Date [...] (07/26/2016): Arthritis of ankle Osteomyelitis of tibia ([facility]) 11/22/2014 Overview (07/26/2016): Osteomyelitis of [...] it, Preservative Free, Intramuscular 04/16/2019(Deferred: Patient Refused) Social History Tobacco Use Types Packs/Day Years Used Date Smoking Tobacco: Every Day Cigarettes Smokeless Tobacco: Never Tobacco Cessation:Ready to Q uit: No; Counseling Given: Yes Alcohol Use Standard Drinks/Week Comments Yes 0 (1 standard drink = 0.6 oz pure alcohol) between pint and fifth a day whiskey or bogdan [facility] Utilities Answer Date Recorded In the past 12 months has [employer], gas, oil, or water [employer] threatened to shut off services in your [...] often do you attend chur ch or taoism services? Never 03/12/2023 Do you belong to any clubs o r organizations such as buddhism groups, unions, fraternal or athletic groups, or school groups? No 03/12/2023 How often do you attend meet ings of the clubs or organizations you belong to? Never 03/12/2023 Marital Status Not on file 03/12/2023 AUDIT-C Answer Date Recorded Q1: How often do you have a drink containing alc ohol? Never 09/19/2020 Average Number of Drinks Not on file Frequency of Binge Drinking Not on file [...] on file Legal Sex Female 10:54 PM LOGISTICS/SHIPPER Gender Identity Not on file Sexual Orientation Not on file Last Filed Vital Signs Vital Sign Reading Time Taken Comments Blood Pressure 152/65 03/15/2023 8:17 AM LOGISTICS/SHIPPER Pulse 99 03/15/2023 8:17 AM LOGISTICS/SHIPPER Temperature 36.3 ??C (97.3 ??F) 03/15/2023 8:17 AM CS T Respiratory Rate 16 03/15/2023 8:17 AM LOGISTICS/SHIPPER Oxygen Saturation 100% 03/15/2023 8:17 AM LOGISTICS/SHIPPER Inhaled Oxygen Concentration - - Weight 66.8 kg (147 lb 4.8 oz) 03/15/2023 5:47 A M LOGISTICS/SHIPPER Height 170.2 cm (5' 7 ) 03/11/2023 3:55 PM LOGISTICS/SHIPPER Body Mass Index 23.07 03/11/2023 3:55 PM LOGISTICS/SHIPPER Plan of Treatment Not on file Insurance [facility] Advance Directives For more information, please contact: [phone] * Full Code (Latest Code Status on File) Date Activated Date Inactivated Comments 03/11/2023 6:45 PM 03/15/2023 2:38 PM * Full Code Date Activated Date Inactivated Comments 03/11/2023 1:49 PM 03/11/2023 6:45 PM * Full Code Date Activated Date Inactivated Comments 09/19/2020 1:47 PM 09/20/2020 4:10 PM * Full Code Date Activated Date Inactivated Comments 04/13/2019 1:47 PM 04/16/2019 1:00 PM Care Teams Retail Merchandising Specialist Relationship Specialty Start Date End Date No, Physician PCP - General 09/19/20 Marlin Andujar Stoner Out Addiction Medicine 04/11/20
[2024-05-23 13:10] VITALS: BP 131/81; PULSE 99; RESP 18; TEMP 36.4; O2SAT 100
--- OUTSIDE RECORDS SUMMARY | 2024-05-23 16:52 | XMS_ITS | Clinical Summary ---
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[facility]) 11/22/2014 Overview (07/26/2016): Osteomyelitis of tibia Dehiscence [...] (07/26/2016): Closed fracture of shaft of tibia Encounters Date Type Department Care Team Description 05/23/2024 3:40 PM [facility] Emergency [facility] Emergency Department [address] [place] [address] from Last 3 Months Immunizations Name Administration Dates Next Due Influenza, Quadrivalent, Spl it, Preservative Free, Intramuscular 04/16/2019(Deferred: Patient Refused) Surgical History Surgery Date Site/Laterality Comments OTHER SURGICAL HISTORY Asd repair as a child OTHER SURGICAL HISTORY 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 Medical History Medical History Date Comments Hx Other Medical Vitamin D defic iency Hx Other Medical 1985 Heart surgery Hx Other Medical 1989 Bilateral [...] cardiac disorder - (Added by TW Conv) Relation Name Status Comments Daughter 1 Daughter 2 Father Maternal Grandmother Mother Paternal Grandmother Social History Tobacco Use Types Packs/Day Years Used Date Smoking Tobacco: Every Day Cigarettes Smokeless Tobacco: Never Tobacco Cessation:Ready to Q uit: No; Counseling Given: Yes Alcohol Use Standard Drinks/Week Comments Yes 0 (1 standard drink = 0.6 oz pure alcohol) between pint and fifth a day [employer] or bogdan [employer] Utilities Answer Date Recorded In the past 12 months has [employer], [employer], or water [employer] threatened to shut off services in your [...] 03/12/2023 How often do you attend chur or roman catholic services? Never 03/12/2023 Do you belong to any clubs o r organizations such as shinto groups, unions, fraternal or athletic groups, or [...] place to sleep or slept in a prison (including now)? No 03/12/2023 Personal Safety Answer [...] on file Legal Sex Female 10:54 PM CLINICAL PROGRAM CONSULTANT Gender Identity Not on file Sexual Orientation Not on file Obstetrics History Last Filed Vital Signs Vital Sign Reading Time Taken Comments Blood Pressure 152/65 03/15/2023 8:17 AM CLINICAL PROGRAM CONSULTANT Pulse 99 03/15/2023 8:17 AM CLINICAL PROGRAM CONSULTANT Temperature 36.3 ??C (97.3 ??F) 03/15/2023 8:17 AM CS T Respiratory Rate 16 03/15/2023 8:17 AM CLINICAL PROGRAM CONSULTANT Oxygen Saturation 100% 03/15/2023 8:17 AM CLINICAL PROGRAM CONSULTANT Inhaled Oxygen Concentration - - Weight 66.8 kg (147 lb 4.8 oz) 03/15/2023 5:47 A M CLINICAL PROGRAM CONSULTANT Height 170.2 cm (5' 7 ) 03/11/2023 3:55 PM CLINICAL PROGRAM CONSULTANT Body Mass Index 23.07 03/11/2023 3:55 PM CLINICAL PROGRAM CONSULTANT Plan of Treatment Health Maintenance Due Date [...] patient's age to complete this topic Insurance [facility] [id number] [facility] [place] [address] [facility] [employer] [facility] Advance Directives For more information, please contact: [phone] * Full Code (Latest Code Status on File) Date Activated Date Inactivated Comments 03/11/2023 6:45 PM 03/15/2023 2:38 PM * Full Code Date Activated Date Inactivated Comments 03/11/2023 1:49 PM 03/11/2023 6:45 PM * Full Code Date Activated Date Inactivated Comments 09/19/2020 1:47 PM 09/20/2020 4:10 PM * Full Code Date Activated Date Inactivated Comments 04/13/2019 1:47 PM 04/16/2019 1:00 PM Care Teams Percussion Instrument Repairer Relationship Specialty Start Date End Date No, Physician PCP - General 09/19/20 Marlin Andujar Press Reader Addiction Medicine 04/11/20
--- OUTSIDE RECORDS SUMMARY | 2024-05-23 16:52 | XMS_ITS | Referral Summary ---
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 Never 03/12/2023 Do you belong to any clubs o r organizations such as temple groups, unions, fraternal or athletic groups, or [...] place to sleep or slept in a fpc (including now)? No 03/12/2023 Personal Safety Answer [...] on file Legal Sex Female 10:54 PM FX ARTIST Gender Identity Not on file Sexual Orientation Not on file Last Filed Vital Signs Vital Sign Reading Time Taken Comments Blood Pressure 152/65 03/15/2023 8:17 AM FX ARTIST Pulse 99 03/15/2023 8:17 AM FX ARTIST Temperature 36.3 ??C (97.3 ??F) 03/15/2023 8:17 AM CS T Respiratory Rate 16 03/15/2023 8:17 AM FX ARTIST Oxygen Saturation 100% 03/15/2023 8:17 AM FX ARTIST Inhaled Oxygen Concentration - - Weight 66.8 kg (147 lb 4.8 oz) 03/15/2023 5:47 A M FX ARTIST Height 170.2 cm (5' 7 ) 03/11/2023 3:55 PM FX ARTIST Body Mass Index 23.07 03/11/2023 3:55 PM FX ARTIST Plan of Treatment Not on file Insurance [facility] [id number] [place] [address] [facility] ID[employer] [facility] Advance Directives For more information, please contact: [phone] * Full Code (Latest Code Status on File) Date Activated Date Inactivated Comments 03/11/2023 6:45 PM 03/15/2023 2:38 PM * Full Code Date Activated Date Inactivated Comments 03/11/2023 1:49 PM 03/11/2023 6:45 PM * Full Code Date Activated Date Inactivated Comments 09/19/2020 1:47 PM 09/20/2020 4:10 PM * Full Code Date Activated Date Inactivated Comments 04/13/2019 1:47 PM 04/16/2019 1:00 PM Care Teams Under Water Assistant Relationship Specialty Start Date End Date No, Physician PCP - General 09/19/20 Marlin Andujar Documentation Writer Addiction Medicine 04/11/20
--- OUTSIDE RECORDS SUMMARY | 2024-05-23 16:53 | XMS_ITS | Encounter Summary ---
Author Organization [facility] Healthcare Address [address] [place] [id number] Care Team Providers Care Kiln Puller Name Role Phone Marlin Andujar Unavailable Unavailable No, Physician Primary Care Provider [phone] Encounter Details Date Type Department Care Team (Late st Contact Info) Description 05/23/2024 3:40 PM [facility] Emergency [facility] Emergency Department [address] [place] [address] Social History Tobacco Use Types Packs/Day Years Used Date Smoking Tobacco: Every Day Cigarettes Smokeless Tobacco: Never Alcohol Use Standard Drinks/Week Comments Yes 0 (1 standard drink = 0.6 oz pure alcohol) between pint and fifth a day whiskey or bogdan [employer] Utilities Answer Date Recorded In the past 12 months has [employer] electric, gas, oil, or water company threatened to shut off services in your [...] often do you attend chur ch or methodist services? Never 03/12/2023 Do you belong to any clubs o r organizations such as evangelical groups, unions, fraternal or athletic groups, or [...] place to sleep or slept in a mcc (including now)? No 03/12/2023 Personal Safety Answer [...] on file Legal Sex Female 10:54 PM [employer] Gender Identity Not on file Sexual Orientation Not on file documented as of this encounter Plan of Treatment Not on file documented as of this encounter Visit Diagnoses Not on filedocumented in this encounter Care Teams Kiln Puller Relationship Specialty Start Date End Date No, Physician PCP - General 09/19/20 Marlin Andujar Hot Header Operator Addiction Medicine 04/11/20 documented as of this encounter
== END 2024-05-23 17:29 | disposition left against medical advice (07) ==
DX: R11.2 Nausea with vomiting, unspecified (principal)
CPT/HCPCS: 99199

== ENCOUNTER 2024-06-21 15:07 | Emergency (ER) | payer OTHER, SELFPAY ==
[2024-06-21 15:26] VITALS: BP 143/91; PULSE 101; RESP 16; TEMP 36.3; O2SAT 98
--- NOTE | 2024-06-21 15:45 | ED.GENADULT ---
HPI - General Adult General Chief complaint: Nausea/Vomiting/Diarrhea Stated complaint: stomach issues,JAMES,sore throat Time Seen by Provider: 06/21/24 15:45 Source: patient, RN notes reviewed and old records reviewed Mode of arrival: ambulatory Limitations: no limitations History of Present Illness HPI narrative: 43-year-old female presents to the [facility] with complaints of body aches, headache, vomiting Reports generalized abdominal pain Symptoms started yesterday. Having trouble to keeping fluids down. Has tried Tums without relief. Onset (ago): day(s) (1) Related Data Home Medications ?Medication ?Instructions ?Recorded ?Confirmed ?Last Taken ?Type duloxetine 60 mg capsule,delayed mg PO 02/10/21 02/10/21 Unknown History release tizanidine 4 mg tablet mg 02/10/21 Unknown History acamprosate 333 mg tablet,delayed mg PO 06/21/24 Unknown History release buprenorphine 8 mg-naloxone 2 mg tablet sublingual 06/21/24 Unknown History sublingual tablet Allergies Allergy/AdvReac Type Severity Reaction Status Date / Time codeine Allergy Mild stomach Verified 06/21/24 15:21 pains Sulfa (Sulfonamide Allergy Unknown Unknown Verified 06/21/24 15:21 Antibiotics) rifampin Allergy Unknown Verified 06/21/24 15:21 Review of Systems Review of Systems: All systems reviewed & are unremarkable except as noted in HPI and below Constitutional: Constitutional: Reports as per HPI, Reports body ache(s) and Reports headache(s) ENT: Reports system reviewed and no additional complaints, except as documented Cardiovascular: Cardiovascular: Denies chest pain and Denies dyspnea Respiratory: Respiratory: Reports no additional respiratory complaints, Denies chest congestion, Denies cough and Denies dyspnea Gastrointestinal: Gastrointestinal: Reports as per HPI, Reports abdominal pain, Reports nausea and Reports vomiting Musculoskeletal: Musculoskeletal: Reports no additional musculoskeletal complaints Integumentary/Breasts: Skin/Breast: Reports system reviewed and no additional complaints, except as docu [facility] Past Medical History Medical History Acid reflux Muscle deformity Muscle flap reconstruction Broken tibia Inguinal hernia 2019 H/O: depression Alcoholism Surgical History Surgical History History of hernia surgery History of left knee surgery History of ankle surgery Bilateral ankles History of cholecystectomy H/O congenital atrial septal defect (ASD) repair History of orthopedic surgery LLE 18 surgeries Family History Family History Father Alcoholism CHF (congestive heart failure) Cancer Kidney disease Liver failure Mother Eosinophilic granuloma of lung Alcoholism COPD (chronic obstructive pulmonary disease) Heart disease Grandparent Acute myocardial infarction Social History Social History Smoking packs per day: 1 Smoking cigarettes per day: 20.0 Years smoked: 24 Smoking pack-years: 24.00 Smoking status: Current every day smoker Tobacco type: cigarettes Second hand tobacco smoke exposure: Yes Alcohol intake: former Drinks per week: 7 Substance use: current Substance use type: marijuana Gender identity (if verbalized by the patient): Female Spiritual care concerns: No Comments At the time of my signature, I reviewed and agree with the nursing past medical, surgical, social, and family history. There is no relevant family history pertinent to the patient complaint. Exam Const: General: cooperative, well developed, alert, in distress mild, tired appearing, uncomfortable and well nourished Nutritional Appearance: well nourished Orientation/consciousness: patient oriented x3 Limitations: no limitations HENMT: Head: normal to inspection Mouth: Yes dry mucous membranes Eyes: General: appearance normal, both eyes and all related structures Alignment and Position: alignment normal Neck: Neck: normal visual inspection, full ROM, no lymphadenopathy and no meningeal signs Chest: Chest palpation & inspection: normal inspection of the chest Resp: Effort & Inspection: normal respiratory effort and able to speak in complete sentences Auscultation: clear to auscultation bilaterally, no crackles, no rales, no rhonchi and no wheezes Cardio: Rate: regular rate GI: GI Palp: Yes abdominal tenderness and Yes Soft to palpation Auscultation: Hyperactive bowel sounds present Skin: General skin exam: normal color and no rashes or lesions noted Neuro: General: patient oriented x3, gait normal, moves all extremities and no meningeal signs Cognition (Neuro): normal cognition Speech: normal speech Gait exam (Neuro): Normal gait present Extrem: General: normal to inspection, full ROM, capillary refill normal and normal gait Psych: Appearance: grossly normal and well kempt Mental Status: mental status grossly normal Speech and movement: Normal speech and movement present and Clear speech present Affect: normal affect Attitude: cooperative Course Course Level of Care: Express Care Visit Vital Signs Vital signs: Vital Signs Temperature 97.4 F L 06/21/24 15:26 Pulse Rate 101 H 06/21/24 15:26 Respiratory Rate 16 06/21/24 15:26 Blood Pressure 143/91 H 06/21/24 15:26 Pulse Oximetry 98 06/21/24 15:26 Oxygen Delivery Room Air 06/21/24 15:26 Temperature 97.4 F L 06/21/24 15:26 Pulse Rate 101 H 06/21/24 15:26 Respiratory Rate 16 06/21/24 15:26 Blood Pressure 143/91 H 06/21/24 15:26 Pulse Oximetry 98 06/21/24 15:26 Oxygen Delivery Room Air 06/21/24 15:26 Reviewed Transfer Transfered to: Other ([facility]) Transportation: Other (POV, declined EMS) Transfer rationale: Patient with nausea vomiting abdominal pain sending for higher level care, concern for dehydration unable to do IV fluids in clinic Accepting physician: Spoke with Constance MONAE. Karis Samuel Given Medical Decision Making MDM Narrative Medical decision making narrative: Patient is in exam room. Patient's vitals are stable patient looks extremely uncomfortable, dehydrated sending for higher level of care. Patient vomiting x1 day with abdominal pain. Transfer instructions reviewed with patient go directly to the ER. Patient is declining EMS wants to go to [facility]. All questions have been answered, and the patient deny any further questions. Some parts of this dictation were generated by voice recognition software and may contain typographical and/or grammatical inaccuracies. Differential Diagnosis Differential Diagnosis: Pancreatitis, gastroenteritis, acute abdomen, intestinal blockage Medical Records Medical records reviewed: Yes I reviewed the external patient's medical records. Vital Signs Vital Signs: Vital Signs Temperature 97.4 F L 06/21/24 15:26 Pulse Rate 101 H 06/21/24 15:26 Respiratory Rate 16 06/21/24 15:26 Blood Pressure 143/91 H 06/21/24 15:26 Pulse Oximetry 98 06/21/24 15:26 Oxygen Delivery Room Air 06/21/24 15:26 Temperature 97.4 F L 06/21/24 15:26 Pulse Rate 101 H 06/21/24 15:26 Respiratory Rate 16 06/21/24 15:26 Blood Pressure 143/91 H 06/21/24 15:26 Pulse Oximetry 98 06/21/24 15:26 Oxygen Delivery Room Air 06/21/24 15:26 Reviewed Lab Data Lab results reviewed: Yes I reviewed the patient's lab results. Labs: Reviewed Critical Care Time Critical Care Time Critical Care Time: No Discharge Plan Discharge Clinical Impression: Abdominal pain, Nausea & vomiting Patient Disposition: Acute Care Hospital Condition: Stable Patient Language: German Prescriptions: No Action buprenorphine-naloxone 8-2 mg tablet, sublingual SUBLINGUAL acamprosate 333 mg tablet,delayed release (DR/EC) PO tizanidine 4 mg tablet duloxetine 60 mg capsule,delayed release(DR/EC) PO Follow-up/Referrals: Inderjit Rodriguez MD [Primary Care Provider] -
[2024-06-21] MEDS: ONDANSETRON HCL ODT 4 MG TABLET PO (15:57)
== END 2024-06-21 16:12 | disposition short-term general hospital (02) ==
PROVIDERS: Emergency Provider Nurse Practitioner; PCP Internal Medicine
DX: R10.9 Unspecified abdominal pain (principal); R11.2 Nausea with vomiting, unspecified; F17.210 Nicotine dependence, cigarettes, uncomplicated; K21.9 Gastro-esophageal reflux disease without esophagitis
CPT/HCPCS: 99213; A9270; G0463